=== PATIENT | female | born 1970 | race Caucasian/White ===

== ENCOUNTER 2018-03-08 05:35 | Inpatient (IN) | payer MEDICAID ==
--- NOTE | 2018-03-08 06:28 | ED PDOC ---
Arrival/HPI - General Chief Complaint: Palpitations Time Seen by Provider: 03/08/18 05:46 Historian: Patient - History of Present Illness Narrative History of Present Illness (Text): 03/08/18 06:21 Dalia Mouar is a 47 year old female, whose past medical history includes thyroidectomy, who presents to the Emergency department complaining of recurrent episodes of palpitations for the past 2 days. Patient states she has experienced 4 episodes of racing heart rate over the past 2 days with associated chest discomfort and shortness of breath. Patient states she regularly takes Synthroid. Patient denies any fever, chills, nausea, vomiting, diarrhea, urinary symptoms, back pain, neck pain, headache, dizziness, or any other complaints. Symptom Onset: Gradual Symptom Course: Unchanged Activities at Onset: Light Context: Home Past Medical History - Provider Review Nursing Documentation Reviewed: Yes - Infectious Disease Hx of Infectious Diseases: None - Cardiac Hx Cardiac Disorders: No - Endocrine/Metabolic Other/Comment: thyroidectomy - Psychiatric Hx Substance Use: No Family/Social History - Physician Review Nursing Documentation Reviewed: Yes Family/Social History: Unknown Family HX Smoking Status: Never Smoked Hx Alcohol Use: No Hx Substance Use: No Allergies/Home Meds Allergies/Adverse Reactions: Allergies No Known Allergies Allergy (Unverified 03/08/18 06:34) Home Medications: Home Meds Medication Instructions Recorded Confirmed Calcitriol [Calcitriol] 0.25 mcg PO DAILY 03/08/18 03/08/18 Calcium Carbonate/Vitamin D3 500 mg PO TID 03/08/18 03/08/18 [Calcium 500 mg Chewable Tablet] Levothyroxine [Synthroid] 125 mcg PO DAILY 03/08/18 03/08/18 Review of Systems - Physician Review All systems were reviewed & negative as marked: Yes - Review of Systems Constitutional: Normal. absent: Fevers Eyes: Normal ENT: Normal Respiratory: Normal. absent: SOB, Cough Cardiovascular: Chest Pain, Palpitations Gastrointestinal: Normal. absent: Abdominal Pain, Diarrhea, Nausea, Vomiting Genitourinary Female: Normal. absent: Dysuria, Frequency, Hematuria, Urine Output Changes Musculoskeletal: Normal. absent: Back Pain, Neck Pain Skin: Normal. absent: Rash Neurological: Normal. absent: Headache, Dizziness Endocrine: Normal Hemo/Lymphatic: Normal Psychiatric: Normal Physical Exam Vital Signs Reviewed: Yes Vital Signs Temp Pulse Resp BP Pulse Ox 03/08/18 05:53 98.2 F 97 H 17 133/91 H 100 Temperature: Afebrile Blood Pressure: Normal Pulse: Regular Respiratory Rate: Normal Appearance: Positive for: Well-Appearing, Non-Toxic, Comfortable Pain Distress: None Mental Status: Positive for: Alert and Oriented X 3 - Systems Exam Head: Present: Atraumatic, Normocephalic Pupils: Present: PERRL Extroacular Muscles: Present: EOMI Conjunctiva: Present: Normal Mouth: Present: Moist Mucous Membranes Neck: Present: Normal Range of Motion Respiratory/Chest: Present: Clear to Auscultation, Good Air Exchange. No: Respiratory Distress, Accessory Muscle Use Cardiovascular: Present: Regular Rate and Rhythm, Normal S1, S2. No: Murmurs Abdomen: No: Tenderness, Distention, Peritoneal Signs Back: Present: Normal Inspection Upper Extremity: Present: Normal Inspection. No: Cyanosis, Edema Lower Extremity: Present: Normal Inspection. No: Edema Neurological: Present: GCS=15, CN II-XII Intact, Speech Normal Skin: Present: Warm, Dry, Normal Color. No: Rashes Psychiatric: Present: Alert, Oriented x 3, Normal Insight, Normal Concentration Medical Decision Making ED Course and Treatment: 03/08/18 06:21 Impression: 47 year old female complaining of palpitations, chest discomfort, and shortness of breath x2 days. Plan: -- EKG -- Chest X-ray -- Labs, cardiac enzymes, D-dimer, thyroid profile -- Reassess and disposition Progress Notes: Reviewed EKG, NSR at [address]pm[address] Non-specific ST/T wave changes. Prolonged QT. 03/08/18 07:00 Case endorsed to /pending labs/Chest X-Ray/Reassess/final disposition - RAD Interpretation Radiology Orders: 03/08/18 06:35 CHEST PORTABLE [RAD] Stat - EKG Interpretation Interpreted by ED Physician: Yes Type: 12 lead EKG - Scribe Statement The provider has reviewed the documentation as recorded by the Sixto Hernandes Provider Scribe Attestation: All medical record entries made by the Scribe were at my direction and personally dictated by me. I have reviewed the chart and agree that the record accurately reflects my personal performance of the history, physical exam, medical decision making, and the department course for this patient. I have also personally directed, reviewed, and agree with the discharge instructions and disposition. Disposition/Present on Arrival - Present on Arrival Any Indicators Present on Arrival: No History of DVT/PE: No History of Uncontrolled Diabetes: No Urinary Catheter: No History of Decub. Ulcer: No History Surgical Site Infection Following: None - Disposition Have Diagnosis and Disposition been Completed?: No Diagnosis: Palpitations, Dyspnea Disposition Time: 07:00 Condition: STABLE Forms: [employer] (Kyrgyz)
[2018-03-08 07:04] LABS: HEMOGLOBIN 7.6 g/dL (12.0-16.0); MEAN CELL VOLUME 65.5 fl (80.0-105.0); MEAN CORPUSCULAR HEMOGLOBIN 18.4 pg (25.0-35.0); MEAN PLATELET VOLUME 8.8 fl (7.0-11.0); RBC 4.14 10^6/uL (3.5-6.1); RED CELL DISTRIBUTION WIDTH 23.3 % (11.5-14.5); WHITE BLOOD COUNT 7.5 10^3/ul (4.5-11.0)
[2018-03-08 07:08] LABS: INR 1.14 (0.93-1.08); PARTIAL THROMBOPLASTIN TIME 24.4 Seconds (25.1-36.5); PROTHROMBIN TIME 13.2 SECONDS (9.4-12.5)
[2018-03-08 07:14] LABS: TROPONIN I < 0.01 ng/mL
[2018-03-08 07:20] LABS: ALB/GLOB RATIO 1.3 (1.1-1.8); ALBUMIN 4.1 g/dL (3.0-4.8); ALT/SGPT 26 U/L (7-56); AST/SGOT 27 U/L (14-36); BLOOD UREA NITROGEN 17 mg/dL (7-21); CALCIUM 8.5 mg/dL (8.4-10.5); FREE T4 2.04 ng/dL (0.78-2.19); GFR AFRICAN-AMERICAN 54; GFR NON-AFRICAN AMERICAN 44
[2018-03-08] MEDS ORDERED: Potassium Chloride 20 mEq ER Tab PO STA (07:20)
--- NOTE | 2018-03-08 08:36 | RAD ---
Date of service: 03/08/2018 HISTORY: palpitations COMPARISON: No prior. FINDINGS: LUNGS: No active pulmonary disease. PLEURA: No significant pleural effusion identified, no pneumothorax apparent. CARDIOVASCULAR: Normal. OSSEOUS STRUCTURES: No significant abnormalities. VISUALIZED UPPER ABDOMEN: Normal. OTHER FINDINGS: None. IMPRESSION: No active disease.
--- NOTE | 2018-03-08 09:56 | ED PDOC ---
Physical Exam Vital Signs Reviewed: Yes Vital Signs Temp Pulse Resp BP Pulse Ox 03/08/18 09:30 84 16 126/59 L 99 03/08/18 07:26 98 H 18 129/88 99 03/08/18 05:53 98.2 F 97 H 17 133/91 H 100 Temperature: Afebrile Blood Pressure: Normal Pulse: Regular Respiratory Rate: Normal Appearance: Positive for: Well-Appearing, Non-Toxic, Comfortable Pain Distress: None Mental Status: Positive for: Alert and Oriented X 3 - Systems Exam Head: Present: Atraumatic, Normocephalic Pupils: Present: PERRL Extroacular Muscles: Present: EOMI Conjunctiva: Present: Normal Mouth: Present: Moist Mucous Membranes Neck: Present: Normal Range of Motion Respiratory/Chest: Present: Clear to Auscultation, Good Air Exchange. No: Respiratory Distress, Accessory Muscle Use Cardiovascular: Present: Regular Rate and Rhythm, Normal S1, S2. No: Murmurs Abdomen: No: Tenderness, Distention, Peritoneal Signs Back: Present: Normal Inspection Upper Extremity: Present: Normal Inspection. No: Cyanosis, Edema Lower Extremity: Present: Normal Inspection. No: Edema Neurological: Present: GCS=15, CN II-XII Intact, Speech Normal Skin: Present: Warm, Dry, Normal Color. No: Rashes Psychiatric: Present: Alert, Oriented x 3, Normal Insight, Normal Concentration Medical Decision Making ED Course and Treatment: Impression: 47 year old female complaining of palpitations, chest discomfort, and shortness of breath x2 days. Plan: -- EKG -- Chest X-ray -- Labs, cardiac enzymes, D-dimer, thyroid profile -- Reassess and disposition Progress Notes: Reviewed EKG, NSR at [address]pm[address] Non-specific ST/T wave changes. Prolonged QT. 03/08/18 07:00 Case endorsed to me for pending labs/Chest X-Ray/Reassess/final disposition Chest X-Ray reviewed by radiologist, shows: Report Date : 03/08/2018 08:35:06 Creator : Bud Bower MD Dictator : Bud Bower MD Clip Baker : Bud Bower MD FINDINGS: LUNGS: No active pulmonary disease. PLEURA: No significant pleural effusion identified, no pneumothorax apparent. CARDIOVASCULAR: Normal. OSSEOUS STRUCTURES: No significant abnormalities. VISUALIZED UPPER ABDOMEN: Normal. OTHER FINDINGS: None. IMPRESSION: No active disease. 03/08/18 10:[address] Rocha (hospitalist), who is aware and agrees with plan. Accepts patient into hospital service for observation. - Lab Interpretations Lab Results: 03/08/18 06:30 03/08/18 06:30 Lab Results 03/08/18 08:20: Blood Type Confirm A POSITIVE 03/08/18 07:40: Blood Type A POSITIVE, Antibody Screen Negative, BBK History Checked No verified bt 03/08/18 06:30: D-Dimer, Quantitative 337 H 03/08/18 06:30: WBC 7.5, RBC 4.14, Hgb 7.6 L, Hct 27.1 L, MCV 65.5 L, MCH 18.4 L , MCHC 28.0 L, RDW 23.3 H, Plt Count 336, MPV 8.8 03/08/18 06:30: Free T4 2.04, TSH 3rd Generation 0.42 L 03/08/18 06:30: Sodium 140, Potassium 2.8 L*, Chloride 104, Carbon Dioxide 25, Anion Gap 14, BUN 17, Creatinine 1.3 H, Est GFR ( Amer) 54, Est GFR (Non- Af Amer) 44, Random Glucose 127 H, Calcium 8.5, Total Bilirubin 0.6, AST 27, ALT 26, Alkaline Phosphatase 41, Lactate Dehydrogenase 538, Total Creatine Kinase 69, Troponin I < 0.01, Total Protein 7.3, Albumin 4.1, Globulin 3.2, Albumin/Globulin Ratio 1.3 03/08/18 06:30: PT 13.2 H, INR 1.14 H, APTT 24.4 L - RAD Interpretation Radiology Orders: 03/08/18 06:35 CHEST PORTABLE [RAD] Stat Director Service: Radiologist - EKG Interpretation Interpreted by ED Physician: Yes Type: 12 lead EKG - Medication Orders Current Medication Orders: Discontinued Medications Potassium Chloride (K-Dur 20 Meq Er Tab) 40 meq PO STAT STA Stop: 03/08/18 07:21 Last Admin: 03/08/18 07:28 Dose: 40 meq - Scribe Statement The provider has reviewed the documentation as recorded by the Bjiblashell Elise All medical record entries made by the Scriblashell were at my direction and personally dictated by me. I have reviewed the chart and agree that the record accurately reflects my personal performance of the history, physical exam, medical decision making, and the department course for this patient. I have also personally directed, reviewed, and agree with the discharge instructions and disposition. Disposition/Present on Arrival - Present on Arrival Any Indicators Present on Arrival: No History of DVT/PE: No History of Uncontrolled Diabetes: No Urinary Catheter: No History of Decub. Ulcer: No History Surgical Site Infection Following: None - Disposition Have Diagnosis and Disposition been Completed?: Yes Diagnosis: Palpitations, Dyspnea, Profound anemia Disposition: HOSPITALIZED Disposition Time: 11:33 Patient Plan: Admission, Telemetry Patient Problems: Current Active Problems Problem Status Onset Palpitations Acute Dyspnea Acute Condition: FAIR
--- NOTE | 2018-03-08 11:11 | CARD ---
APPROVED REPORT Date of service: 03/08/2018 EKG Measurement Heart [id number] ID [id number] <Conclusion> Normal sinus rhythm Nonspecific ST and T wave abnormality Prolonged QT Abnormal ECG
[2018-03-08 12:53] VITALS: BMI 25.8
[2018-03-08] MEDS ORDERED: Pneumococcal 23-Valent Vaccine IM ONE (12:53)
[2018-03-08] MEDS ORDERED: VITAMIN D3 PO SCH (14:00)
[2018-03-08] MEDS ORDERED: CALCIUM CARBONATE PO SCH (14:00)
[2018-03-08] MEDS ORDERED: [UNRECOGNIZED DRUG - OTHER] PO SCH (14:00)
[2018-03-08 15:53] LABS: CALCIUM 8.7 mg/dL (8.4-10.5)
[2018-03-08 15:57] LABS: IRON 19 ug/dL (45-180)
[2018-03-08 15:58] LABS: HEMOGLOBIN 7.9 g/dL (12.0-16.0)
[2018-03-08 16:06] LABS: % IRON SATURATION 5 % (20-55); TOTAL IRON BINDING CAPACITY 387 ug/dL (265-497)
--- NOTE | 2018-03-08 16:58 | CP.PCM.HP ---
<Marissa Tiwari - Last Filed: 03/08/18 16:55> History of Present Illness - History of Present Illness History of Present Illness: Marissa Tiwari, PGY1 H&P for Hospitalist Dr. Rocha Ms. Moura is a 47yo F with a PMH of hypothyroidism and iron-deficiency anemia presented to the ED today with palpitations for 2 days. She reports sitting at home on 03/06 and feeling palpitations, unprovoked by any activity or incident. She reported associated sweating, chills, and shortness of breath. She denied any chest pain, dizziness or loss of consciousness. At this time, she reports taking 20mg of inderal, and the palpitations subsided after 3 hours. She reports a previous history of this episode in 01/2018 in [facility], where she visited a hospital there and received the inderal. The patient reports the palpitations recurring yesterday 03/07. She also reports a soft bowel stool yesterday after eating spicy food, but denies any abdominal pain or cramping. Pt reports a headache today. Allergies: NKDA Meds: Synthroid, caltrate, calcium PMH: hypothyroidism and iron deficiency anemia PSxH: thyroidectomy (2011). Tubular Ligation FHx: Father - DM2, Mother- denies SocHx: Pt is a home health aid. Lives at home with and children. Denies past or present tobacco use or recreational drug use. Reports occasional alcohol use. Drinks 2 cups of tea/day [employer]ERK SUPERVISOR: reports regular menses, uses 5 pads for the first 2 days of menses. LMP: PMD: Dr. Delcid ED: EKG: NSR @ 95 CXR: unremarkable Troponin: neg x2 Labs: Hb 7.6, K+ 2.1 D-dimer: 337 Present on Admission - Present on Admission Any Indicators Present on Admission: No History of DVT/PE: No History of Uncontrolled Diabetes: No Review of Systems - Constitutional Constitutional: As Per HPI, Chills, Excessive Sweating - Cardiovascular Cardiovascular: Diaphoresis, Palpitations - Respiratory Respiratory: Dyspnea - Gastrointestinal Gastrointestinal: Loose Stools - Menstruation Menstruation: As Per HPI - Neurological Neurological: As Per HPI Past Patient History - Infectious Disease Hx of Infectious Diseases: None - Past Medical History & Family History Past Medical History?: Yes Past Family History: Reviewed and not pertinent - Past Social History Smoking Status: Never Smoked Alcohol: Occasional Drugs: Denies - CARDIAC Hx Cardiac Disorders: Yes (palpitations) - PULMONARY Hx Respiratory Disorders: No - NEUROLOGICAL Hx Neurological Disorder: No - HEENT Hx HEENT Problems: No - RENAL Hx Chronic Kidney Disease: No - ENDOCRINE/METABOLIC Hx Endocrine Disorders: Yes Hx Hypothyroidism: Yes Other/Comment: thyroidectomy - HEMATOLOGICAL/ONCOLOGICAL Hx Blood Disorders: Yes Hx Anemia: Yes - INTEGUMENTARY Hx Dermatological Problems: No - MUSCULOSKELETAL/RHEUMATOLOGICAL Hx Falls: No - GASTROINTESTINAL Hx Gastrointestinal Disorders: No - GENITOURINARY/GYNECOLOGICAL Hx Genitourinary Disorders: No - PSYCHIATRIC Hx Substance Use: No - SURGICAL HISTORY Hx Surgeries: Yes (tubal ligation) Meds Allergies/Adverse Reactions: Allergies Allergy/AdvReac Type Severity Reaction Status Date / Time No Known Allergies Allergy Unverified 03/08/18 06:34 Physical Exam - Constitutional Appears: No Acute Distress - Head Exam Head Exam: ATRAUMATIC, NORMOCEPHALIC - Eye Exam Eye Exam: EOMI, Normal appearance, PERRL Pupil Exam: NORMAL ACCOMODATION - ENT Exam ENT Exam: Mucous Membranes Moist - Neck Exam Neck exam: Positive for: Normal Inspection - Respiratory Exam Respiratory Exam: Clear to Auscultation Bilateral, NORMAL BREATHING PATTERN - Cardiovascular Exam Cardiovascular Exam: REGULAR RHYTHM, +S1, +S2 - GI/Abdominal Exam GI & Abdominal Exam: Normal Bowel Sounds, Soft - Extremities Exam Extremities exam: Positive for: normal inspection, pedal pulses present - Back Exam Back exam: NORMAL INSPECTION - Neurological Exam Neurological exam: Alert, Oriented x3 - Skin Skin Exam: Intact, Normal Color Results - Vital Signs Recent Vital Signs: Last Vital Signs Temp 99.7 F H 03/08/18 12:40 Pulse 96 H 03/08/18 12:40 Resp 17 03/08/18 12:40 BP 147/96 H 03/08/18 12:40 Pulse Ox 98 03/08/18 12:36 - Labs Result Diagrams: 03/08/18 15:39 03/08/18 15:39 Labs: Laboratory Results - last 24 hr 03/08/18 03/08/18 03/08/18 13:09 15:39 15:39 Hgb 7.9 L Hct 27.9 L Sodium 143 Potassium 3.2 L Chloride 102 Carbon Dioxide 28 Anion Gap 16 BUN 15 Creatinine 1.3 H Est GFR ( Amer) 54 Est GFR (Non-Af Amer) 44 Random Glucose 104 Calcium 8.7 Iron TIBC % Saturation Troponin I < 0.01 03/08/18 15:39 Hgb Hct Sodium Potassium Chloride Carbon Dioxide Anion Gap BUN Creatinine Est GFR ( Amer) Est GFR (Non-Af Amer) Random Glucose Calcium Iron 19 L TIBC 387 % Saturation 5 L Troponin I - EKG Data EKG shows normal: Sinus rhythm Assessment & Plan - Assessment and Plan (Free Text) Assessment: Assessment: 47 year old female with past medical history of hypothyroidism, thyroid mass s/ p thymectomy who presents to [facility] ED complaining of few day history of palpitations. Patient evaluated in ED and admitted for palpitations, anemia, and hypokalemia. Patient admitted to observation. Plan: Plan: Palpitations - Etiology: electrolyte abnormality vs. anemia vs. thyrotoxicosis vs. arrhythmia - Hypokalemia of 2.8 on admission, H/H of 7.6/27.1 - TSH 0.42, Free T4 2.04 wnl, EKG showing sinus tachycardia - Troponin negative x 2 - Continue propranolol 40mg Daily Anemia - Hemoglobin 7.6/27.1 on admission - Etiology: Menstrual bleeding vs. GI bleed - Repeat H/H showing 7.9/27.9, stable - Patient with tachycardia, no shob - Iron panel - Repeat CBC - FOBT Hypokalemia (2.8 on admission) - Etiology likely GI loss - Replete K+, recheck shows 3.2 - Replete potassium as necessary Elevated D-Dimer - Etiology: Infectious vs. Anemia vs. PE/DVT - No leukocytosis, anemia on admission - O2 Saturation >92%, no shob - CTA chest for eval of PE, f/u results Hx of Hypothyroid - TSH 0.42, Free T4 2.04 - Continue home synthroid - Continue propranolol from home GI/DVT ppx - Pepcid - SCD Case and plan discussed with attending Dr. Rocha <Debbie Rocha R - Last Filed: 03/09/18 20:16> Results - Vital Signs Recent Vital Signs: Last Vital Signs Temp 99.7 F H 03/09/18 19:00 Pulse 92 H 03/09/18 19:00 Resp 18 07/31/18 18:00 BP 129/82 03/09/18 18:00 Pulse Ox 98 03/09/18 16:59 - Labs Result Diagrams: 03/09/18 16:00 03/09/18 06:00 Attending/Attestation - Attestation I have personally seen and examined this patient.: Yes I have fully participated in the care of the patient.: Yes I have reviewed all pertinent clinical information: Yes Notes (Text): Patient seen and examined by me at 13:30 with resident 03/08/18. Case including HPI, physical exam, and assessment and plan discussed with resident. Agree with above with following additions/corrections. Patient is a 47-year-old female past medical history significant for hypothyroidism status post thyroidectomy that presented to the emergency room with palpitations. Patient states that the palpitations started on Thursday, . She states that the palpitations have been persistent since then which brought her into the emergency room this morning. She states that the same thing happened in January 2018 when patient was in [facility] and she was started on propanolol at that time. Patient states that her doctor stated that she needed to stay on the propanolol however patient only takes it as needed. Patient does drink 2 cups of tea a day. Patient states that yesterday she had episodes of "feeling hot and cold." She states that she may have had a fever last night however she did not take her temperature. She states that she also had an episode of diarrhea on 03/06/2018 which has since resolved. Patient denies any associated chest pain. Patient did travel recently from [facility]. She denies any shortness of breath or cough. No nausea, vomiting, or abdominal pain. No headaches or dizziness. No dysuria. No neck pain or back pain. No calf pain. Patient states that she does have a history of iron deficiency anemia however she has not followed with the primary care doctor to have a blood work monitored. She states that her last menstrual period was last week. No lightheadedness. No hematochezia. 12 point review systems reviewed by me. Please see HPI. All other systems are negative. Past surgical history: Tubal ligation Family history: Mom is alive and has borderline diabetes. Father and had diabetes Physical exam: Gen: Awake and alert sitting up in bed in no acute distress HEENT: Normocephalic atraumatic. Extraocular muscles intact, pupils equal reactive. Oropharynx is pink and moist, no pharyngeal erythema or exudate appreciated. Neck is supple. Hearing grossly intact. Ears and nose externally unremarkable Cardiovascular: Normal rhythm. Normal S1, S2. No murmurs, rubs, or gallops appreciated Pulmonary: Normal respiratory effort. No rhonchi, rales or wheezing appreciated. Gastrointestinal: Soft, nontender, nondistended, positive bowel sounds all 4 quadrants, no guarding. Musculoskeletal: Normal range of motion all extremities, no calf tenderness, no edema appreciated Central nervous system: AAO x 3. 5/5 muscle strength all extremities. CN 2-12 grossly intact Dermatologic: Skin warm and dry Assessment and plan: Patient is a 47-year-old female with past medical significant for hypothyroidism status post thyroidectomy that presented to the emergency room with palpitations. 1. Palpitations. Resolved. We'll restart patient on home propanolol. Will check 2-D echo. No current signs of infection. Urinalysis pending. We'll monitor on telemetry. 2. Elevated d-dimer. Patient with recent travel. We'll check CTA chest and lower extremity Dopplers to rule out PE and DVT 3. Hypokalemia. Likely secondary to diarrhea. We will replace with by mouth potassium. Follow up repeat labs. 4. Elevated creatinine. Likely secondary to mild dehydration. We'll place on IV fluids. Follow up repeat labs in a.m. 5. History of iron deficiency anemia. Unsure of what baseline H&H is. We'll check iron studies. Check stool for occult blood. Patient did recently have her menstrual period. We'll monitor CBC. Transfuse if hemoglobin less than 7 6. Hypothyroidism. Continue home levothyroxine Case was discussed in detail with the patient and auditor medical claims regarding current diagnosis and treatment plan.
[2018-03-08 17:07] LABS: URINE BILIRUBIN NEGATIVE (NEGATIVE); URINE BLOOD LARGE (NEGATIVE); URINE GLUCOSE (UA) NEGATIVE (NEGATIVE); URINE LEUKOCYTE ESTERASE SMALL Leu/uL (NEGATIVE); URINE PROTEIN 100 mg/dL (<30 mg/dL); URINE UROBILINOGEN 0.2 E.U./dL (<1 E.U./dL)
[2018-03-08 17:08] LABS: URINE APPEARANCE SLIGHT-CLOUDY (CLEAR); URINE COLOR YELLOW (YELLOW)
[2018-03-08 17:10] LABS: URINE RBC 25 - 30 /hpf (0-2)
[2018-03-08] MEDS ORDERED: Potassium Chloride 20 mEq ER Tab PO ONE (18:00)
--- NOTE | 2018-03-08 18:19 | US ---
HISTORY: Leg pain and swelling. Evaluate for DVT PHYSICIAN(S): Taran Grijalva MD. TECHNIQUE: Duplex sonography and color-flow Doppler with graded compression were used to evaluate the deep venous systems of both lower extremities. FINDINGS: The visualized deep venous systems of both lower extremities are sonographically normal and compressible. Normal wave forms and augmentation are seen. There is no sonographic evidence for deep venous thrombosis in the visualized segments of both lower extremities. IMPRESSION: No sonographic evidence for deep venous thrombosis in the visualized segments of both lower extremities.
[2018-03-08] MEDS: Sodium Chloride 0.9% 1,000 ML IV SCH (19:13)
[2018-03-08] MEDS ORDERED: Iohexol 350 MG/100 ML VIAL ONE (20:19)
[2018-03-09 06:46] LABS: BASO # 0.01 K/mm3 (0.0-2.0); BASO % 0.1 % (0.0-3.0); EOS % 0.1 % (1.5-5.0); GRAN # 7.64 (1.4-6.5); GRAN % 85.2 % (50.0-68.0); HEMOGLOBIN 7.2 g/dL (12.0-16.0); LYMPH # 0.8 (1.2-3.4); LYMPH % 8.6 % (22.0-35.0); MEAN CELL VOLUME 65.5 fl (80.0-105.0); MEAN CORPUSCULAR HEMOGLOBIN 18.7 pg (25.0-35.0); MEAN CORPUSCULAR HGB CONC 28.5 g/dl (31.0-37.0); MONO # 0.5 (0.1-0.6); RBC 3.86 10^6/uL (3.5-6.1); RED CELL DISTRIBUTION WIDTH 23.5 % (11.5-14.5)
[2018-03-09 06:50] LABS: INR 1.18
[2018-03-09 06:57] LABS: ALB/GLOB RATIO 1.1 (1.1-1.8); ALBUMIN 3.3 g/dL (3.0-4.8); CALCIUM 7.9 mg/dL (8.4-10.5)
[2018-03-09] MEDS ORDERED: Potassium Chloride 20 mEq ER Tab PO ONE (08:06)
[2018-03-09] MEDS: Sodium Chloride 0.9% 1,000 ML IV SCH ×3 (08:12→21:39)
--- NOTE | 2018-03-09 08:43 | CP.PCM.PN ---
<Marissa Tiwari - Last Filed: 03/09/18 20:32> Subjective - Date & Time of Evaluation Date of Evaluation: 03/09/18 Time of Evaluation: 14:36 - Subjective Subjective: Marissa Tiwari, PGY-[address] Debbie Rocha Ms. Edmond was seen today at [facility]. She reports fever, sweating, and chills overnight. She denies any palpitations, chest pain, dizziness, nausea, vomiting , diarrhea, abdominal pain, or dysuria. She reported polyuria which she attributed to increased h2o intake. Objective - Vital Signs/Intake and Output Vital Signs (last 24 hours): Temp Pulse Resp BP Pulse Ox 101.7 F H 107 H 20 140/79 98 03/09/18 03:40 03/09/18 05:53 03/09/18 05:53 03/09/18 05:53 03/09/18 05:53 Intake and Output: 03/09/18 03/09/18 06:59 18:59 Intake Total 807 480 Output Total 800 Balance 807 -320 - Medications Medications: Current Medications Acetaminophen (Tylenol 325mg Tab) 650 mg PO Q6H PRN PRN Reason: Pain, moderate (4-7) Calcitriol (Rocaltrol) 0.25 mcg PO DAILY [facility] Calcium Carbonate (Oscal) 500 mg PO DAILY [facility] Famotidine (Pepcid) 20 mg PO BID [facility] Last Admin: 03/08/18 17:16 Dose: 20 mg Sodium Chloride (Sodium Chloride 0.9%) 1,000 mls @ 100 mls/hr IV .Q10H [facility] Last Admin: 03/09/18 08:12 Dose: 100 mls/hr Levothyroxine Sodium (Synthroid) 125 mcg PO DAILY [facility] Propranolol HCl (Inderal) 20 mg PO DAILY [facility] - Labs Labs: 03/09/18 06:00 03/09/18 06:00 PT 13.6 SECONDS 03/09/18 06:00 INR 1.18 03/09/18 06:00 APTT 24.4 Seconds (25.1-36.5) L 03/08/18 06:30 - Constitutional Appears: Well, No Acute Distress - Head Exam Head Exam: ATRAUMATIC, NORMOCEPHALIC - Eye Exam Eye Exam: EOMI, PERRL - ENT Exam ENT Exam: Mucous Membranes Moist - Neck Exam Neck Exam: Full ROM - Respiratory Exam Respiratory Exam: Clear to Ausculation Bilateral, NORMAL BREATHING PATTERN - Cardiovascular Exam Cardiovascular Exam: RRR, +S1, +S2 - GI/Abdominal Exam GI & Abdominal Exam: Soft, Normal Bowel Sounds. absent: Distended, Tenderness Additional comments: No suprapubic pain. - Neurological Exam Neurological Exam: Alert, Awake, Oriented x3 - Psychiatric Exam Psychiatric exam: Normal Affect, Normal Mood - Skin Skin Exam: Warm Additional comments: moist skin from diaphoresis Assessment and Plan - Assessment and Plan (Free Text) Assessment: 47 year old female with past medical history of hypothyroidism, thyroid mass s/ p thyroidectomy (2011) who presents to [facility] complaining of few day history of palpitations. Patient evaluated in ED and admitted for palpitations, anemia, and hypokalemia. Patient admitted to observation. Plan: Urinary Tract Infection - Tmax 103F and tachycardia > 90bpm - suspected source Urine culture: preliminary Gram neg sanjana, CFU >100,000 - UA: small leukocyte esterase - Blood culture: prelim neg - procal: 0.73 - f/u lactate - Rocephin 1gm qd - Inderal on hold - ID Consulted - f/u reccs Palpitations - resolved since admission - Etiology: stress reaction from infectious process vs. anemia vs. electrolyte abnormality - Hypokalemia of 2.8 on admission, now 3.5. H/H of 7.6/27.1, now 7.4/26.2 - TSH 0.42, Free T4 2.04 wnl, EKG showing sinus tachycardia - Troponin negative x 3 - propranolol on hold Anemia - Repeat H&H now 7.4/26.2 - Fe 19 TIBC 387 - Etiology: Menstrual bleeding vs. GI bleed - f/u FOBT Hypokalemia (2.8 on admission) - Repleted K+, Today 3.5 - Etiology likely GI loss - Replete potassium as necessary Elevated D-Dimer - Etiology: Infectious vs. Anemia - No leukocytosis on admission - CTA chest negative - B/l LE US negative - O2 saturation >92% - Unlikely DVT/PE etiology Hx of Hypothyroid - TSH 0.42, Free T4 2.04 - Continue home synthroid - Propranolol on hold GI/DVT ppx - Pepcid - SCD Case and plan discussed with attending Dr. Rocha <Debbie Rocha R - Last Filed: 03/10/18 07:57> Objective - Vital Signs/Intake and Output Vital Signs (last 24 hours): Temp Pulse Resp BP Pulse Ox 98.2 F 84 20 132/90 99 03/10/18 06:00 03/10/18 06:00 03/10/18 06:00 03/10/18 06:00 03/10/18 06:00 Intake and Output: 03/10/18 03/10/18 06:59 18:59 Intake Total 0 Output Total 0 Balance 0 - Medications Medications: Current Medications Acetaminophen (Tylenol 325mg Tab) 650 mg PO Q6H PRN PRN Reason: Fever >100.4 F Last Admin: 03/10/18 06:57 Dose: 650 mg Calcitriol (Rocaltrol) 0.25 mcg PO DAILY [facility] Last Admin: 03/09/18 10:35 Dose: 0.25 mcg Calcium Carbonate (Oscal) 500 mg PO DAILY [facility] Last Admin: 03/09/18 10:35 Dose: 500 mg Famotidine (Pepcid) 20 mg PO BID [facility] Last Admin: 03/09/18 17:38 Dose: 20 mg Ferrous Gluconate (Fergon) 324 mg PO DAILY [facility] Sodium Chloride (Sodium Chloride 0.9%) 1,000 mls @ 100 mls/hr IV .Q10H [facility] Last Admin: 03/10/18 06:59 Dose: 100 mls/hr Ceftriaxone Sodium (Rocephin 1 Gram Ivpb) 1 gm in 100 mls @ 100 mls/hr IVPB DAILY [facility] PRN Reason: Protocol Last Admin: 03/09/18 17:39 Dose: 100 mls/hr Levothyroxine Sodium (Synthroid) 125 mcg PO DAILY [facility] Last Admin: 03/09/18 10:35 Dose: 125 mcg - Labs Labs: 03/10/18 06:00 PT 13.6 SECONDS 03/09/18 06:00 INR 1.18 03/09/18 06:00 APTT 24.4 Seconds (25.1-36.5) L 03/08/18 06:30 Attending/Attestation - Attestation I have personally seen and examined this patient.: Yes I have fully participated in the care of the patient.: Yes I have reviewed all pertinent clinical information, including history, physical exam and plan: Yes Notes (Text): Patient seen and examined by me at 13:30 with resident 03/08/18. Case including HPI, physical exam, and assessment and plan discussed with resident. Agree with above with following additions/corrections. Patient states she is feeling ok. States she had an episode of feeling hot and sweaty and having chills last night. She states the nurse took her temperature at that time and she was found to have a fever. Patient states she feels much better today. No fevers or chills this morning. Palpitations resolved. She denies any shortness of breath or cough. No nausea, vomiting, or abdominal pain. No headaches or dizziness. No dysuria. However, patient states she does have increased urinary frequency. No neck pain or back pain. Physical exam: Gen: Awake and alert sitting up in bed in no acute distress HEENT: Normocephalic, atraumatic. Extraocular muscles intact, pupils equal reactive. Oropharynx is pink and moist, no pharyngeal erythema or exudate appreciated. Neck is supple. Cardiovascular: Normal rhythm. Normal S1, S2. No murmurs, rubs, or gallops appreciated Pulmonary: Normal respiratory effort. No rhonchi, rales or wheezing appreciated. Gastrointestinal: Soft, nontender, nondistended, positive bowel sounds all 4 quadrants, no guarding. Musculoskeletal: Normal range of motion all extremities, no calf tenderness, no edema appreciated Central nervous system: AAO x 3. 5/5 muscle strength all extremities. CN 2-12 grossly intact Dermatologic: Skin warm and dry Assessment and plan: Patient is a 47-year-old female with past medical significant for hypothyroidism status post thyroidectomy that presented to the emergency room with palpitations. 1. Sepsis secondary to UTI. Fevera and tachycardia. Follow up procalcitonin and lactic acid. Started on Rocephin. Continue with IV fluids. ID consulted, follow up recommendations. Blood cultures pending. Tylenol prn fever. 2. Palpitations. Resolved. Likely secondary to fevers. Hold propanolol for now secondary to sepsis. 2D echo per inking machine tender showed a normal study. 3. Elevated d-dimer. Patient with recent travel. CTA chest negative for PE. Lower extremity Dopplers negative for DVT 4. Hypokalemia. Improved. Will give PO replacement. Follow up repeat labs in AM. 5. Elevated creatinine. Likely secondary to mild dehydration. Resolved. Continue to monitor. 6. Iron deficiency anemia. Iron levels low. Will start on ferrous gluconate. Continue to monitor CBC. Transfuse if Hgb < 7. 7. Hypothyroidism. Continue home levothyroxine Case was discussed in detail with the patient regarding current diagnosis and treatment plan.
--- NOTE | 2018-03-09 08:49 | CT ---
Date of service: 03/08/2018 PROCEDURE: CT Chest with contrast (Pulmonary Angiogram) HISTORY: palpitations,dyspnea COMPARISON: None available. TECHNIQUE: Axial computed tomography images were obtained of the chest in the pulmonary arterial phase of enhancement. Coronal and sagittal reformatted images were created and reviewed. Intravenous contrast dose: 100 cc of Omni 350 Radiation dose: Total exam DLP = 327 mGy-cm. This CT exam was performed using one or more of the following dose reduction techniques: Automated exposure control, adjustment of the mA and/or kV according to patient size, and/or use of iterative reconstruction technique. FINDINGS: PULMONARY ARTERIES: Unremarkable. No pulmonary embolism. AORTA: No acute findings. No thoracic aortic aneurysm. LUNGS: Unremarkable. No nodule, mass or pulmonary consolidation. PLEURAL SPACES: Unremarkable. No effusion or pneumothorax. HEART: Unremarkable. No cardiomegaly. No significant pericardial effusion. LYMPH NODES: No lymphadenopathy. BONES, CHEST WALL: Unremarkable. No fracture or destructive lesion OTHER FINDINGS: The report concurs with the preliminary [facility] report IMPRESSION: Unremarkable CT pulmonary angiogram. No pulmonary embolus.
[2018-03-09] MEDS: Levothyroxine 125 MCG TAB PO SCH (10:35)
[2018-03-09] MEDS ORDERED: Magnesium 2 gm/50 ml NS 2 GM/50 ML BAG IVPB ONE (11:38)
[2018-03-09] MEDS ORDERED: cefTRIAXone 2 GM IN NS 2 GM/100 ML BAG IVPB SCH (11:45)
--- NOTE | 2018-03-09 13:09 | CARD ---
APPROVED REPORT Date of service: 03/09/2018 EXAM: Two-dimensional and M-mode echocardiogram with Doppler and color Doppler. INDICATION Dyspnea Palpitations 2D DIMENSIONS Left Atrium (2D)2.7 (1.6-4.0cm)IVSd1.0 (0.7-1.1cm) LVDd4.2 (3.9-5.9cm)PWd1.0 (0.7-1.1cm) LVDs2.8 (2.5-4.0cm)FS (%) 35.1 % LVEF (%)64.8 (>50%) M-Mode DIMENSIONS Aortic Root2.80 (2.2-3.7cm)Aortic Cusp Exc.1.80 (1.5-2.0cm) Aortic Valve AoV Peak Qxudeorp394.0cm/Inez Peak GR.6mmHg Mitral Valve MV E Ughakfwm41.0cm/sMV A Eggztglc80.4cm/sE/A ratio1.2 TDI E/Lateral E'0.0E/Medial E'0.0 Tricuspid Valve TR Peak [id number]/sRAP [id number] Peak Gr.12mmHg [id number] LEFT VENTRICLE The left ventricle is normal size. There is normal left ventricular wall thickness. The left ventricular function is normal. The left ventricular ejection fraction is within the normal range. There is normal LV segmental wall motion. RIGHT VENTRICLE The right ventricle is normal size. The right ventricular systolic function is normal. ATRIA The left atrium size is normal. The right atrium size is normal. The interatrial septum is intact with no evidence for an atrial septal defect. AORTIC VALVE The aortic valve is normal in structure. No aortic regurgitation is present. There is no aortic valvular stenosis. MITRAL VALVE The mitral valve is normal in structure. Mitral regurgitation is trace. TRICUSPID VALVE The tricuspid valve is normal in structure. There is mild tricuspid regurgitation. PULMONIC VALVE The pulmonary valve is normal in structure. GREAT VESSELS The aortic root is normal in size. The IVC is normal in size and collapses >50% with inspiration. PERICARDIAL EFFUSION There is no pleural effusion. There is no pericardial effusion. <Conclusion> Normal study.
[2018-03-09] MEDS ORDERED: cefTRIAXone 1 gm 1 GM/100 ML BAG IVPB SCH (14:35)
[2018-03-09 16:12] LABS: HEMOGLOBIN 7.4 g/dL (12.0-16.0)
[2018-03-09] MEDS: cefTRIAXone 1 gm 1 GM/100 ML BAG IVPB SCH (17:39)
[2018-03-10] MEDS: Sodium Chloride 0.9% 1,000 ML IV SCH ×3 (01:36→22:00)
[2018-03-10 06:36] LABS: BASO # 0.01 K/mm3 (0.0-2.0); BASO % 0.1 % (0.0-3.0); EOS % 0.2 % (1.5-5.0); GRAN # 4.99 (1.4-6.5); GRAN % 61.9 % (50.0-68.0); LYMPH # 2.2 (1.2-3.4); LYMPH % 26.7 % (22.0-35.0); MEAN CELL VOLUME 65.4 fl (80.0-105.0); MEAN CORPUSCULAR HEMOGLOBIN 18.4 pg (25.0-35.0); MEAN CORPUSCULAR HGB CONC 28.1 g/dl (31.0-37.0); MEAN PLATELET VOLUME 8.9 fl (7.0-11.0); MONO # 0.9 (0.1-0.6); MONO % 11.1 % (1.0-6.0); PLATELET COUNT 294 10^3/uL (120.0-450.0); RED CELL DISTRIBUTION WIDTH 23.6 % (11.5-14.5); WHITE BLOOD COUNT 8.1 10^3/ul (4.5-11.0)
--- NOTE | 2018-03-10 06:57 | CP.PCM.PN ---
<Marissa Tiwari - Last Filed: 03/10/18 19:01> Subjective - Date & Time of Evaluation Date of Evaluation: 03/10/18 Time of Evaluation: 17:22 - Subjective Subjective: Marissa Tiwari PGY [address] Debbie Rocha Ms. Moura was seen today at bedside. She reported feeling warm the night before, but currently feels comfortable. She denies any headache, dizziness, chills, chest pain, palpitations, abdominal pain, nausea, vomiting, diarrhea, or dysuria. Objective - Vital Signs/Intake and Output Vital Signs (last 24 hours): Temp Pulse Resp BP Pulse Ox 98.2 F 84 20 132/90 99 03/10/18 06:00 03/10/18 06:00 03/10/18 06:00 03/10/18 06:00 03/10/18 06:00 Intake and Output: 03/09/18 03/10/18 18:59 06:59 Intake Total 0 Output Total 0 Balance 0 - Medications Medications: Current Medications Acetaminophen (Tylenol 325mg Tab) 650 mg PO Q6H PRN PRN Reason: Fever >100.4 F Last Admin: 03/09/18 14:50 Dose: 650 mg Calcitriol (Rocaltrol) 0.25 mcg PO DAILY [facility] Last Admin: 03/09/18 10:35 Dose: 0.25 mcg Calcium Carbonate (Oscal) 500 mg PO DAILY [facility] Last Admin: 03/09/18 10:35 Dose: 500 mg Famotidine (Pepcid) 20 mg PO BID [facility] Last Admin: 03/09/18 17:38 Dose: 20 mg Ferrous Gluconate (Fergon) 324 mg PO DAILY [facility] Sodium Chloride (Sodium Chloride 0.9%) 1,000 mls @ 100 mls/hr IV .Q10H [facility] Last Admin: 03/10/18 01:36 Dose: Not Given Ceftriaxone Sodium (Rocephin 1 Gram Ivpb) 1 gm in 100 mls @ 100 mls/hr IVPB DAILY [facility] PRN Reason: Protocol Last Admin: 03/09/18 17:39 Dose: 100 mls/hr Levothyroxine Sodium (Synthroid) 125 mcg PO DAILY [facility] Last Admin: 03/09/18 10:35 Dose: 125 mcg - Labs Labs: PT 13.6 SECONDS 03/09/18 06:00 INR 1.18 03/09/18 06:00 APTT 24.4 Seconds (25.1-36.5) L 03/08/18 06:30 - Constitutional Appears: Well, No Acute Distress - Head Exam Head Exam: ATRAUMATIC, NORMOCEPHALIC - Eye Exam Eye Exam: EOMI, PERRL Pupil Exam: NORMAL ACCOMODATION - ENT Exam ENT Exam: Mucous Membranes Moist - Neck Exam Neck Exam: Full ROM - Respiratory Exam Respiratory Exam: Clear to Ausculation Bilateral, NORMAL BREATHING PATTERN - Cardiovascular Exam Cardiovascular Exam: REGULAR RHYTHM, +S1, +S2 - GI/Abdominal Exam GI & Abdominal Exam: Soft, Normal Bowel Sounds. absent: Distended, Firm, Tenderness Additional comments: no suprapubic tenderness - Extremities Exam Extremities Exam: Normal Inspection. absent: Pedal Edema - Neurological Exam Neurological Exam: Alert, Awake, Oriented x3 - Psychiatric Exam Psychiatric exam: Normal Affect, Normal Mood - Skin Skin Exam: Normal Color Assessment and Plan - Assessment and Plan (Free Text) Assessment: 47 year old female with past medical history of hypothyroidism, thyroid mass s/ p thyroidectomy (2011) who presents to [facility] complaining of few day history of palpitations. Patient evaluated in ED and admitted for palpitations, anemia, and hypokalemia. Patient admitted to observation. Plan: Sepsis - Tmax 103F on 03/09 and tachycardia > 90bpm - T 99.2 today, HR 84 - suspected source Urine culture: confirmed E.coli, CFU >100,000 - UA: small leukocyte esterase - Blood culture: prelim neg - procal: 0.73 - lactate: 0.6 - Rocephin 1gm qd - Inderal on hold - ID Consulted - recommended workup of babesiosis and malaria due to recent travel to [facility]. - will follow ID lab work up closely Anemia - Repeat H&H 6.8 / 24.2 today - Fe 19 TIBC 387 - 1 unit PRBC given - Consent for transfusion obtained - Etiology: Menstrual bleeding vs. GI bleed - f/u FOBT Palpitations - resolved since admission - Etiology: stress reaction from infectious process vs. anemia vs. electrolyte abnormality - Hypokalemia of 2.8 on admission, now 3.1. H/H of 7.6/27.1, now 6.8/24.2 - TSH 0.42, Free T4 2.04 wnl, EKG showing sinus tachycardia - Troponin negative x 3 - propranolol on hold Hypokalemia (2.8 on admission) - Today 3.1 - K+ 40mg given - Etiology likely GI loss Elevated D-Dimer - Etiology: Infectious vs. Anemia - No leukocytosis on admission - CTA chest negative - B/l LE US negative - O2 saturation >92% - Unlikely DVT/PE etiology Hx of Hypothyroid - TSH 0.42, Free T4 2.04 - Continue home synthroid - Propranolol on hold Prophylaxis: SCDs. Pepcid Case seen and reviewed with Dr. Rocha. <Debbie Rocha R - Last Filed: 03/12/18 14:17> Objective - Vital Signs/Intake and Output Vital Signs (last 24 hours): Temp Pulse Resp BP Pulse Ox 98.5 F 80 18 137/96 H 96 03/12/18 06:00 03/12/18 06:00 03/12/18 06:00 03/12/18 06:00 03/12/18 06:00 Intake and Output: 03/12/18 03/12/18 06:59 18:59 Intake Total 640 Balance 640 - Medications Medications: Current Medications Acetaminophen (Tylenol 325mg Tab) 650 mg PO Q6H PRN PRN Reason: Fever >100.4 F Last Admin: 03/10/18 06:57 Dose: 650 mg Acetaminophen (Tylenol 325mg Tab) 650 mg PO Q6H PRN PRN Reason: Pain, moderate (4-7) Last Admin: 03/12/18 08:48 Dose: 650 mg Calcitriol (Rocaltrol) 0.5 mcg PO BID [facility] Last Admin: 03/12/18 10:14 Dose: Not Given Calcium Acetate (Phoslo) 667 mg PO WM [facility] Last Admin: 03/12/18 12:32 Dose: 667 mg Calcium Carbonate (Oscal) 1,000 mg PO BID [facility] Last Admin: 03/12/18 09:28 Dose: 1,000 mg Cholecalciferol (Vitamin D) 2,000 intlu PO DAILY [facility] Last Admin: 03/12/18 09:28 Dose: 2,000 intlu Famotidine (Pepcid) 20 mg PO BID [facility] Last Admin: 03/12/18 09:28 Dose: 20 mg Ferrous Gluconate (Fergon) 324 mg PO DAILY [facility] Last Admin: 03/12/18 09:28 Dose: 324 mg Ceftriaxone Sodium (Rocephin 1 Gram Ivpb) 1 gm in 100 mls @ 100 mls/hr IVPB DAILY [facility] PRN Reason: Protocol Last Admin: 03/12/18 10:56 Dose: 100 mls/hr Levothyroxine Sodium (Synthroid) 125 mcg PO DAILY [facility] Last Admin: 03/12/18 09:29 Dose: 125 mcg Propranolol HCl (Inderal La) 20 mg PO DAILY [facility] - Labs Labs: 03/12/18 05:30 03/12/18 05:30 PT 13.6 SECONDS (9.4-12.5) 03/09/18 06:00 INR 1.18 03/09/18 06:00 APTT 24.4 Seconds (25.1-36.5) L 03/08/18 06:30 Attending/Attestation - Attestation I have personally seen and examined this patient.: Yes I have fully participated in the care of the patient.: Yes I have reviewed all pertinent clinical information, including history, physical exam and plan: Yes Notes (Text): Patient seen and examined by me at 12:15PM with resident 03/10/18. Case including HPI, physical exam, and assessment and plan discussed with resident. Agree with above with following additions/corrections. Patient states that she is feeling pretty good. She has not had any more fevers or chills. She denies any palpitations. No shortness of breath or cough. No nausea, vomiting, or abdominal pain. No headaches or dizziness. She denies any dysuria or burning with urination. No neck pain or back pain. Physical exam: Gen: Awake and alert sitting up in bed in no acute distress HEENT: Normocephalic, atraumatic. Extraocular muscles intact, pupils equal reactive. Oropharynx is pink and moist, no pharyngeal erythema or exudate appreciated. Neck is supple. Cardiovascular: Normal rhythm. Normal S1, S2. No murmurs, rubs, or gallops appreciated Pulmonary: Normal respiratory effort. No rhonchi, rales or wheezing appreciated. Gastrointestinal: Soft, nontender, nondistended, positive bowel sounds all 4 quadrants, no guarding. Musculoskeletal: Normal range of motion all extremities, no calf tenderness, no edema appreciated Central nervous system: AAO x 3. 5/5 muscle strength all extremities. CN 2-12 grossly intact Dermatologic: Skin warm and dry Assessment and plan: Patient is a 47-year-old female with past medical significant for hypothyroidism status post thyroidectomy that presented to the emergency room with palpitations. 1. Sepsis secondary to UTI. Afebrile. Tachycardia improved. Pro-calcitonin elevated at 0.73. Lactic acid 0.6. Continue Rocephin 1 g IV piggyback daily Continue with IV fluids. ID following, recommendations appreciated.. Blood cultures negative so far. Final urine culture pending. Tylenol prn fever. 2. Palpitations. Resolved. Likely secondary to fevers and sepsis. Hold propanolol for now secondary to sepsis. 2D echo per industrial relations analyst showed a normal study. 3. Elevated d-dimer. Patient with recent travel. CTA chest negative for PE. Lower extremity Dopplers negative for DVT 4. Hypokalemia. Improved. Continue with PO replacement. Follow up repeat labs in AM. 5. Hypocalcemia. Given calcium gluconate. Follow up repeat labs in a.m. 6. Elevated creatinine. Likely secondary to mild dehydration. Resolved. Continue to monitor. 7. Iron deficiency anemia with acute on chronic anemia. Iron levels low. Continue ferrous gluconate. UA was positive for large blood. Hemoglobin 6.8. Will transfuse 1 unit packed red blood cells. Continue to monitor CBC. Stool for occult blood pending 8. Hypothyroidism. Continue home levothyroxine Case was discussed in detail with the patient regarding current diagnosis and treatment plan.
[2018-03-10] MEDS ORDERED: Barium Sulfate Susp 2.1% w/v, 2.0% w/w 450 mL Bottle PO ONE (07:23)
[2018-03-10 07:35] LABS: HEMOGLOBIN 6.8 g/dL (12.0-16.0)
[2018-03-10 08:00] LABS: ALBUMIN 3.3 g/dL (3.0-4.8); ALT/SGPT 34 U/L (7-56); AST/SGOT 40 U/L (14-36); BLOOD UREA NITROGEN 11 mg/dL (7-21); CALCIUM 6.3 mg/dL (8.4-10.5); GFR AFRICAN-AMERICAN > 60; GFR NON-AFRICAN AMERICAN 54
[2018-03-10] MEDS ORDERED: Potassium Chloride 20 mEq ER Tab PO ONE (08:37)
[2018-03-10] MEDS: Levothyroxine 125 MCG TAB PO SCH (09:58)
[2018-03-10] MEDS ORDERED: cefTRIAXone 1 gm 1 GM/100 ML BAG IVPB SCH (10:00)
[2018-03-10] MEDS: cefTRIAXone 1 gm 1 GM/100 ML BAG IVPB SCH (12:39)
[2018-03-10] MEDS ORDERED: Potassium Chloride 20 mEq ER Tab PO STA (13:18)
[2018-03-10 13:57] LABS: PROTHROMBIN TIME 13.6 SECONDS (9.4-12.5)
--- NOTE | 2018-03-10 14:22 | CT ---
Date of service: 03/10/2018 PROCEDURE: CT Abdomen and Pelvis without intravenous contrast HISTORY: fever of 103 COMPARISON: None. TECHNIQUE: Without contrast.. Contrast dose: Radiation dose: Total exam DLP = 492 mGy-cm. This CT exam was performed using one or more of the following dose reduction techniques: Automated exposure control, adjustment of the mA and/or kV according to patient size, and/or use of iterative reconstruction technique. FINDINGS: LOWER THORAX: Unremarkable. LIVER: Unremarkable. No gross lesion or ductal dilatation. GALLBLADDER AND BILE DUCTS: Unremarkable. PANCREAS: Unremarkable. No gross lesion or ductal dilatation. SPLEEN: Unremarkable. ADRENALS: Unremarkable. No mass. KIDNEYS AND URETERS: Unremarkable. No hydronephrosis. No solid mass. Small nonobstructing stone in the right kidney 3 mm. VASCULATURE: Unremarkable. No aortic aneurysm. BOWEL: Unremarkable. No obstruction. No gross mural thickening. APPENDIX: Unremarkable. Normal appendix. PERITONEUM: Unremarkable. No free fluid. No free air. LYMPH NODES: Unremarkable. No enlarged lymph nodes. BLADDER: Unremarkable. REPRODUCTIVE: Unremarkable. BONES: No acute fracture. OTHER FINDINGS: None. IMPRESSION: No acute intra-abdominal findings
--- NOTE | 2018-03-10 14:32 | CON ---
Copied To: Zia Pinon MD Attending MD: Zia Pinon MD DATE: 03/10/2018 CHIEF COMPLAINT: Fever times several days. HISTORY OF PRESENT ILLNESS: This is a 47-year-old female with past medical history significant for thyroid cancer who has had thyroidectomy years ago followed by radiation and who was admitted because of palpitations. She states she was having fevers and chills at home, had palpitations. Denies any headaches, any blurred vision. Review of systems reveals no chest pain. No abdominal pain, diarrhea or constipation. No dysuria. No frequency. She has no urinary symptoms. No back pain. PAST MEDICAL HISTORY: Significant for thyroid cancer, hypothyroidism and anemia. PAST SURGICAL HISTORY: Significant for thyroidectomy in 2011 with radiation. ALLERGIES: THE PATIENT HAS NO KNOWN ALLERGIES. MEDICATIONS AT HOME: Include propranolol, levothyroxine, calcium and calcitriol. SOCIAL HISTORY: She lives with her , has three kids, no pets. She had a recent travel to her country in [facility], at the end of January, she returned and she has never had a history of malaria. PHYSICAL EXAMINATION: VITAL SIGNS: On exam, temperature is 99, T-max was 103, blood pressure is 128/80, respiratory rate of 20. The heart rate was up to 104. HEENT: Examination is unremarkable. NECK: Supple. LUNGS: Have decreased breath sounds. HEART: Normal S1, S2. ABDOMEN: Soft, nontender. No rebound, no guarding. No masses. There is no CVA tenderness. DATA: Laboratory examination reveals a white count of 7.5, hemoglobin is 7.6 with an MCV of 65 with a platelets of 336 and coagulation is noted and the D-dimer is elevated and chemistries reveal a BUN of 13, creatinine of 1.2. Procalcitonin 0.73. Urinalysis is noted with 5-10 wbc's, small leukocyte esterase, large blood, 100 protein. Microbiology reveals a gram-negative sanjana in the urine. The blood cultures are negative. The patient had a CT scan of the chest which was negative; lower extremity ultrasound which is negative, chest x-ray which is negative. ASSESSMENT AND PLAN: This is a 47-year-old female with history of thyroid cancer, thyroidectomy, radiation; hypothyroidism, anemia with recent travel to [facility] with a temperature of 103, heart rate of 104, gram-negative sanjana in the urine, although no urinary symptoms and no abdominal symptoms. 1. Sepsis with gram-negative sanjana in urine as the source with anemia, must rule out underlying malaria and because of a travel history to [facility], we will order malaria and babesiosis workup, order babesiosis and malaria smears and the reticulocyte count, HIV, CAT scan of the abdomen and pelvis. Currently, the patient is on ceftriaxone. We will continue the ceftriaxone, pending initial workup results, identification and sensitivity of the Gram-negative sanjana. We will follow closely with you. Zia Pinon MD
[2018-03-10] MEDS ORDERED: Magnesium Oxide 400 mg Tab UD PO STA (21:00)
[2018-03-11 06:58] LABS: BASO # 0.01 K/mm3 (0.0-2.0); BASO % 0.2 % (0.0-3.0); EOS # 0.2 (0.0-0.7); EOS % 2.6 % (1.5-5.0); GRAN # 3.64 (1.4-6.5); GRAN % 59.1 % (50.0-68.0); LYMPH # 1.7 (1.2-3.4); LYMPH % 27.9 % (22.0-35.0); MEAN CELL VOLUME 66.8 fl (80.0-105.0); MEAN CORPUSCULAR HEMOGLOBIN 20.2 pg (25.0-35.0); MEAN CORPUSCULAR HGB CONC 30.3 g/dl (31.0-37.0); MEAN PLATELET VOLUME 8.5 fl (7.0-11.0); MONO # 0.6 (0.1-0.6); MONO % 10.2 % (1.0-6.0); RBC 3.91 10^6/uL (3.5-6.1); RED CELL DISTRIBUTION WIDTH 24.2 % (11.5-14.5); WHITE BLOOD COUNT 6.2 10^3/ul (4.5-11.0)
--- NOTE | 2018-03-11 07:15 | CP.PCM.PN ---
<Marissa Tiwari - Last Filed: 03/11/18 15:33> Subjective - Date & Time of Evaluation Date of Evaluation: 03/11/18 Time of Evaluation: 07:13 - Subjective Subjective: Marissa Tiwari PGY1 Progress Note for Dr. Debbie Rocha Ms. Moura was examined at bedside this morning. She reported no events overnight. She denied any headache, dizziness, fever, chills, chest pain, palpitation, abdominal pain, nausea, vomiting, or dysuria. Objective - Vital Signs/Intake and Output Vital Signs (last 24 hours): Temp Pulse Resp BP Pulse Ox 99.3 F 87 20 142/96 H 100 03/11/18 06:00 03/11/18 06:00 03/11/18 06:00 03/11/18 06:00 03/11/18 06:00 Intake and Output: 03/11/18 03/11/18 06:59 18:59 Intake Total 480 Balance 480 - Medications Medications: Current Medications Acetaminophen (Tylenol 325mg Tab) 650 mg PO Q6H PRN PRN Reason: Fever >100.4 F Last Admin: 03/10/18 06:57 Dose: 650 mg Calcitriol (Rocaltrol) 0.25 mcg PO DAILY [facility] Last Admin: 03/10/18 09:57 Dose: 0.25 mcg Calcium Carbonate (Oscal) 500 mg PO DAILY [facility] Last Admin: 03/10/18 09:57 Dose: 500 mg Famotidine (Pepcid) 20 mg PO BID [facility] Last Admin: 03/10/18 18:20 Dose: 20 mg Ferrous Gluconate (Fergon) 324 mg PO DAILY [facility] Last Admin: 03/10/18 09:57 Dose: 324 mg Sodium Chloride (Sodium Chloride 0.9%) 1,000 mls @ 100 mls/hr IV .Q10H [facility] Last Admin: 03/10/18 22:00 Dose: Not Given Ceftriaxone Sodium (Rocephin 1 Gram Ivpb) 1 gm in 100 mls @ 100 mls/hr IVPB DAILY [facility] PRN Reason: Protocol Last Admin: 03/10/18 12:39 Dose: 100 mls/hr Levothyroxine Sodium (Synthroid) 125 mcg PO DAILY [facility] Last Admin: 03/10/18 09:58 Dose: 125 mcg - Labs Labs: 03/10/18 06:00 08/01/18 06:00 PT 13.6 SECONDS (9.4-12.5) 03/09/18 06:00 INR 1.18 03/09/18 06:00 APTT 24.4 Seconds (25.1-36.5) L 03/08/18 06:30 - Constitutional Appears: Well, No Acute Distress - Head Exam Head Exam: ATRAUMATIC, NORMOCEPHALIC - Eye Exam Eye Exam: EOMI, PERRL Pupil Exam: NORMAL ACCOMODATION - Respiratory Exam Respiratory Exam: Clear to Ausculation Bilateral, NORMAL BREATHING PATTERN - Cardiovascular Exam Cardiovascular Exam: REGULAR RHYTHM, +S1, +S2 - GI/Abdominal Exam GI & Abdominal Exam: Soft, Normal Bowel Sounds. absent: Distended, Guarding, Tenderness Additional comments: no suprapubic tenderness - Extremities Exam Extremities Exam: Normal Inspection. absent: Joint Swelling, Pedal Edema - Neurological Exam Neurological Exam: Alert, Awake, Oriented x3 - Psychiatric Exam Psychiatric exam: Normal Affect, Normal Mood Assessment and Plan - Assessment and Plan (Free Text) Assessment: 47 year old female with past medical history of hypothyroidism, thyroid mass s/ p thyroidectomy (2011) who presents to [facility] ED complaining of few day history of palpitations. Patient evaluated in ED and admitted for palpitations, anemia, and hypokalemia. Patient admitted to observation. Plan: Sepsis - Tmax 103F on 03/09 and tachycardia > 90bpm - T 99.3 today, HR 87 - suspected source Urine culture: confirmed E.coli, CFU >100,000 - UA: small leukocyte esterase - Blood culture: prelim neg x2 - procal: 0.73 - lactate: 0.6 - Rocephin 1gm qd - Inderal on hold - ID Consulted - recommended cefpodoxime 200mg PO upon d/c - awaiting workup of babesiosis and malaria Anemia - Repeat H&H 7.9 / 26.1 today - Fe 19 TIBC 387 - 1 unit PRBC given yesterday (03/10) - Etiology: Menstrual bleeding vs. GI bleed - f/u FOBT: awaiting collection Hypocalcemia - Ca 6.0 today, corrected for albumin 6.6 - Vit D 17.8 today - Consulted Endo: Dr. Elliott, recs appreciated - increase Ca Carbonate to 1000mg BID as per endo - Calcitriol increased to 0.5 mcg daily as per endo - ordered TSH, T4, free T4: f/u results Palpitations - resolved since admission - Etiology: stress reaction from infectious process vs. anemia vs. electrolyte abnormality - Hypokalemia of 2.8 on admission, now 3.4. H/H of 7.6/27.1, now 7.9 / 26.1 - TSH 0.42, Free T4 2.04 wnl, EKG showing sinus tachycardia - Troponin negative x 3 - propranolol on hold Hypokalemia (2.8 on admission) - Today 3.4 - K+ 40mg given again - Etiology likely GI loss Elevated D-Dimer - Etiology: Infectious vs. Anemia - No leukocytosis on admission - CTA chest negative - B/l LE US negative - O2 saturation >92% - Unlikely DVT/PE etiology Hx of Hypothyroid - TSH 0.42, Free T4 2.04 - Continue home synthroid - Consulted endo: Dr. Elliott, recs appreciated - Propranolol on hold Prophylaxis: SCDs. Pepcid Case seen and reviewed with Dr. Rocha. <Debbie Rocha R - Last Filed: 03/12/18 14:49> Objective - Vital Signs/Intake and Output Vital Signs (last 24 hours): Temp Pulse Resp BP Pulse Ox 98.2 F 78 16 136/88 96 03/12/18 12:00 03/12/18 14:27 03/12/18 12:00 03/12/18 14:27 03/12/18 06:00 Intake and Output: 03/12/18 03/12/18 06:59 18:59 Intake Total 640 Balance 640 - Medications Medications: Current Medications Acetaminophen (Tylenol 325mg Tab) 650 mg PO Q6H PRN PRN Reason: Fever >100.4 F Last Admin: 03/10/18 06:57 Dose: 650 mg Acetaminophen (Tylenol 325mg Tab) 650 mg PO Q6H PRN PRN Reason: Pain, moderate (4-7) Last Admin: 03/12/18 08:48 Dose: 650 mg Calcitriol (Rocaltrol) 0.5 mcg PO BID [facility] Last Admin: 03/12/18 10:14 Dose: Not Given Calcium Acetate (Phoslo) 667 mg PO WM [facility] Last Admin: 03/12/18 12:32 Dose: 667 mg Calcium Carbonate (Oscal) 1,000 mg PO BID [facility] Last Admin: 03/12/18 09:28 Dose: 1,000 mg Cholecalciferol (Vitamin D) 2,000 intlu PO DAILY [facility] Last Admin: 03/12/18 09:28 Dose: 2,000 intlu Famotidine (Pepcid) 20 mg PO BID [facility] Last Admin: 03/12/18 09:28 Dose: 20 mg Ferrous Gluconate (Fergon) 324 mg PO DAILY [facility] Last Admin: 03/12/18 09:28 Dose: 324 mg Ceftriaxone Sodium (Rocephin 1 Gram Ivpb) 1 gm in 100 mls @ 100 mls/hr IVPB DAILY [facility] PRN Reason: Protocol Last Admin: 03/12/18 10:56 Dose: 100 mls/hr Levothyroxine Sodium (Synthroid) 125 mcg PO DAILY [facility] Last Admin: 03/12/18 09:29 Dose: 125 mcg Propranolol HCl (Inderal) 20 mg PO DAILY [facility] Last Admin: 03/12/18 14:27 Dose: 20 mg - Labs Labs: 03/12/18 05:30 03/12/18 05:30 PT 13.6 SECONDS (9.4-12.5) 03/09/18 06:00 INR 1.18 03/09/18 06:00 APTT 24.4 Seconds (25.1-36.5) L 03/08/18 06:30 Attending/Attestation - Attestation I have personally seen and examined this patient.: Yes I have fully participated in the care of the patient.: Yes I have reviewed all pertinent clinical information, including history, physical exam and plan: Yes Notes (Text): Patient seen and examined by me at 11:15AM with resident 03/11/18. Case including HPI, physical exam, and assessment and plan discussed with resident. Agree with above with following additions/corrections. Patient states that she is feeling ok. No complaints. She denies any fevers or chills. No more palpitations. No shortness of breath or cough. No nausea, vomiting, or abdominal pain. No headaches or dizziness. No dysuria or burning with urination. No neck pain or back pain. Patient states that she has a history of low calcium secondary to her thyroid surgery. Physical exam: Gen: Awake and alert sitting up in bed in no acute distress HEENT: Normocephalic, atraumatic. Extraocular muscles intact, pupils equal reactive. Oropharynx is pink and moist, no pharyngeal erythema or exudate appreciated. Neck is supple. Cardiovascular: Normal rhythm. Normal S1, S2. No murmurs, rubs, or gallops appreciated Pulmonary: Normal respiratory effort. No rhonchi, rales or wheezing appreciated. Gastrointestinal: Soft, nontender, nondistended, positive bowel sounds all 4 quadrants, no guarding. Musculoskeletal: Normal range of motion all extremities, no calf tenderness, no edema appreciated Central nervous system: AAO x 3. 5/5 muscle strength all extremities. CN 2-12 grossly intact Dermatologic: Skin warm and dry Assessment and plan: Patient is a 47-year-old female with past medical significant for hypothyroidism status post thyroidectomy that presented to the emergency room with palpitations. 1. Sepsis secondary to UTI. Sepsis resolved. Urine culture positive for E.Coli. Remains afebrile. Continue Rocephin 1 g IVPB daily. Continue with IV fluids. Pro-calcitonin was elevated at 0.73. Lactic acid was 0.6. ID following, recommendations appreciated. Blood cultures negative so far. Tylenol prn fever. 2. Palpitations. Resolved. Likely secondary to fevers and sepsis. Hold propanolol for now. 2D echo per beater worker helper showed a normal study. 3. Elevated d-dimer. Patient with recent travel. CTA chest negative for PE. Lower extremity Dopplers negative for DVT 4. Hypokalemia. Improved. Continue with PO replacement. Follow up repeat labs in AM. 5. Hypocalcemia. Calcium 6.0. PTH and Vitamin D ordered. Endocrinology consulted , follow up recommendations. 6. Elevated creatinine. Likely secondary to mild dehydration. Resolved. Continue to monitor. 7. Iron deficiency anemia with acute on chronic anemia. Iron levels low. Continue ferrous gluconate. S/P 1 unit PRBC. H&H improved. Continue to monitor CBC. Stool for occult blood pending 8. Hypothyroidism. Continue home levothyroxine Case was discussed in detail with the patient regarding current diagnosis and treatment plan.
[2018-03-11 07:16] LABS: HEMOGLOBIN 7.9 g/dL (12.0-16.0)
[2018-03-11 07:32] LABS: ALBUMIN 3.1 g/dL (3.0-4.8); ALT/SGPT 25 U/L (7-56); AST/SGOT 35 U/L (14-36); BLOOD UREA NITROGEN 10 mg/dL (7-21); GFR AFRICAN-AMERICAN > 60; GFR NON-AFRICAN AMERICAN 60
--- NOTE | 2018-03-11 08:54 | PN ---
Copied To: Zia Pinon MD Attending MD: Zia Pinon MD DATE: 03/11/2018 SUBJECTIVE: The patient is in bed, in no acute distress, nontoxic. PHYSICAL EXAMINATION: VITAL SIGNS: Temperature is 98, blood pressure is 140/60, respiratory rate of 18. HEENT: Examination of HEENT is unremarkable. NECK: Supple. LUNGS: Have decreased breath sounds. HEART: Normal S1, S2. ABDOMEN: Soft, nontender. LABORATORY DATA: Laboratory examination reveals a white count of 6.2, hemoglobin of 7.9 and coagulation is noted. The chemistries are noted with a procalcitonin of 0.73 and low calcium and low magnesium, mild elevation of AST of 40. Urinalysis is noted. Microbiology reveals E. coli in the urine. It is sensitive to ceftriaxone with a negative blood cultures. It is sensitive to Cipro and sensitive to cefazolin. Review of orders reveals the patient is on ceftriaxone. The malaria workup is still pending. ASSESSMENT AND PLAN: A 47-year-old female with past medical history significant for thyroid cancer, had a thyroidectomy years ago, had radiation. Admitted with palpitations and found that she was having fevers and chills. Temperature of 103 in the hospital with #1 is sepsis with Escherichia coli in the urine as the source, although the patient does not have any genitourinary symptoms. Because of a recent travel to [facility] and anemia, Malaria is in the differential. The patient is on ceftriaxone. Maybe able to switch to p.o. cefpodoxime 200 mg b.i.d. for a total of 7-10 days. The patient's CAT scan of the abdomen was unremarkable. Awaiting for the malaria smear. progress note from today is reviewed. No assessment and plan as of yet is noted. Maybe able to switch to p.o. cefpodoxime from an infectious disease point of view upon discharge. Zia Pinon MD
[2018-03-11] MEDS: Levothyroxine 125 MCG TAB PO SCH (09:49)
[2018-03-11] MEDS: cefTRIAXone 1 gm 1 GM/100 ML BAG IVPB SCH (09:49)
--- NOTE | 2018-03-11 10:39 | CP.PCM.CON ---
History of Present Illness - History of Present Illness History of Present Illness: Endocrinology Consult Note: 47 F with a PMHx of hypothyroidism (thyroidectomy in 2011) , hypocalcemia, and iron-deficiency anemia presented to the ED with palpitations x 2 days prior to arrival to the ED. The palpitations is associated with sweating, chills, and sob. Patient had similar symptom in [facility] were she was given Inderal which relieves her symptoms. She took it prior to arrival and after 3-4 hours it subsided. Patient also states that 1-2 weeks prior to arrival to the ED she was found hypocalcemic by her PMD and was instructed to take Oscal 3 pills BID followed by 2 pills BID and was told her calcium level was better. Patient being treated for sepsis, UTI, anemia, and hypokalemia. Endocrinology was consulted for hypocalcemia. Patient currently has some gary - oral numbness and numbness of her finger tips. No other complaints. 12 Point ROS performed and neg other than stated above. 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 Denies any tobacco use or recreational drug use. Social drinker. Review of Systems - Review of Systems All systems: reviewed and no additional remarkable complaints except Past Patient History - Infectious Disease Hx of Infectious Diseases: None - Past Medical History & Family History Past Medical History?: Yes Past Family History: Reviewed and not pertinent - Past Social History Smoking Status: Never Smoked Alcohol: Occasional Drugs: Denies - CARDIAC Hx Cardiac Disorders: Yes (palpitations) - PULMONARY Hx Respiratory Disorders: No - NEUROLOGICAL Hx Neurological Disorder: No - HEENT Hx HEENT Problems: No - RENAL Hx Chronic Kidney Disease: No - ENDOCRINE/METABOLIC Hx Endocrine Disorders: Yes Hx Hypothyroidism: Yes Other/Comment: thyroidectomy - HEMATOLOGICAL/ONCOLOGICAL Hx Blood Disorders: Yes Hx Cancer: Yes (thyroid) - INTEGUMENTARY Hx Dermatological Problems: No - MUSCULOSKELETAL/RHEUMATOLOGICAL Hx Falls: No - GASTROINTESTINAL Hx Gastrointestinal Disorders: No - GENITOURINARY/GYNECOLOGICAL Hx Genitourinary Disorders: No - PSYCHIATRIC Hx Substance Use: No - SURGICAL HISTORY Hx Surgeries: Yes (thyroidectomy 2011) Meds Allergies/Adverse Reactions: Allergies Allergy/AdvReac Type Severity Reaction Status Date / Time No Known Allergies Allergy Unverified 03/08/18 06:34 - Medications Medications: Current Medications Acetaminophen (Tylenol 325mg Tab) 650 mg PO Q6H PRN PRN Reason: Fever >100.4 F Last Admin: 03/10/18 06:57 Dose: 650 mg Calcitriol (Rocaltrol) 0.25 mcg PO DAILY [facility] Last Admin: 03/11/18 09:49 Dose: 0.25 mcg Calcium Carbonate (Oscal) 1,000 mg PO BID [facility] Famotidine (Pepcid) 20 mg PO BID [facility] Last Admin: 03/11/18 09:49 Dose: 20 mg Ferrous Gluconate (Fergon) 324 mg PO DAILY [facility] Last Admin: 03/11/18 09:49 Dose: 324 mg Sodium Chloride (Sodium Chloride 0.9%) 1,000 mls @ 100 mls/hr IV .Q10H [facility] Last Admin: 03/10/18 22:00 Dose: Not Given Ceftriaxone Sodium (Rocephin 1 Gram Ivpb) 1 gm in 100 mls @ 100 mls/hr IVPB DAILY [facility] PRN Reason: Protocol Last Admin: 03/11/18 09:49 Dose: 100 mls/hr Levothyroxine Sodium (Synthroid) 125 mcg PO DAILY [facility] Last Admin: 03/11/18 09:49 Dose: 125 mcg Physical Exam - Constitutional Appears: No Acute Distress - Eye Exam Eye Exam: EOMI - ENT Exam ENT Exam: Mucous Membranes Moist - Neck Exam Neck exam: Negative for: Tenderness, Thyromegaly - Respiratory Exam Respiratory Exam: Clear to Auscultation Bilateral. absent: Rales, Wheezes - Cardiovascular Exam Cardiovascular Exam: REGULAR RHYTHM, +S1, +S2 - GI/Abdominal Exam GI & Abdominal Exam: Normal Bowel Sounds, Soft. absent: Tenderness - Extremities Exam Extremities exam: Negative for: calf tenderness, pedal edema - Neurological Exam Neurological exam: Alert, CN II-XII Intact - Psychiatric Exam Psychiatric exam: Normal Mood - Skin Skin Exam: Dry, Intact, Warm Results - Vital Signs Recent Vital Signs: Last Vital Signs Temp 98.7 F 03/11/18 08:14 Pulse 81 03/11/18 08:14 Resp 20 03/11/18 06:00 BP 142/96 H 03/11/18 06:00 Pulse Ox 100 03/11/18 06:00 - Labs Result Diagrams: 03/11/18 05:45 03/11/18 05:45 Labs: Laboratory Results - last 24 hr 03/11/18 03/11/18 05:45 05:45 WBC 6.2 D RBC 3.91 Hgb 7.9 L Hct 26.1 L MCV 66.8 L MCH 20.2 L MCHC 30.3 L RDW 24.2 H Plt Count 287 MPV 8.5 Gran % 59.1 Lymph % (Auto) 27.9 Emanuel % (Auto) 10.2 H Eos % (Auto) 2.6 Baso % (Auto) 0.2 Gran # 3.64 Lymph # (Auto) 1.7 Emanuel # (Auto) 0.6 Eos # (Auto) 0.2 Baso # (Auto) 0.01 Sodium 142 Potassium 3.4 L Chloride 108 H Carbon Dioxide 23 Anion Gap 13 BUN 10 Creatinine 1.0 Est GFR ( Amer) > 60 Est GFR (Non-Af Amer) 60 Random Glucose 98 Calcium 6.0 L* Total Bilirubin 0.4 AST 35 ALT 25 Alkaline Phosphatase 54 Total Protein 6.3 Albumin 3.1 Globulin 3.1 Albumin/Globulin Ratio 1.0 L Assessment & Plan - Assessment and Plan (Free Text) Assessment: 47 F with a PMHx of hypothyroidism (thyroidectomy in 2011) , hypocalcemia, and iron-deficiency anemia presented to the ED with palpitations x 2 days prior to arrival to the ED. Patient being treated for sepsis, UTI, anemia s/p transfusion 1 unit PRBC, and hypokalemia. 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 - Ca of 6.0 in the morning - corrected for hypoalbumin of 3.1, calcium is 6.7 - Calcium gluconate x 1 today - Calcium carbonate increased to 1000mg BID - Calcitriol 0.25mc increased to 0.5mcg daily - F/u 25OH Vit D, and PTH intact - Recommend Mg and K supplementation as needed - Cont Levothyroxine 125mcg daily - F/u aislinn TSH, T4, Free T4 Patient case and plan was discussed in detail with Dr Cam. Librado Bone, PGY3
[2018-03-11] MEDS ORDERED: Potassium Chloride 40 mEq/30 ml LIQ UD PO STA (10:50)
[2018-03-11] MEDS ORDERED: Potassium Chloride 20 mEq ER Tab PO STA (11:58)
--- NOTE | 2018-03-12 02:23 | CON ---
Copied To: Larissa Elliott MD Attending MD: Larissa Elliott MD DATE: 03/11/2018 ENDOCRINOLOGY CONSULTATION HISTORY OF PRESENT ILLNESS: This is a 47-year-old female with known history of hypothyroidism with a previous thyroidectomy procedure undertaken, presenting here with palpitations and progressive shortness of breath and was evaluated to have profound hypocalcemia and is now being referred for Endocrine evaluation and management. She also has concomitant marked iron deficiency anemia and received packed RBC transfusion as noted. PAST MEDICAL HISTORY: As mentioned above, history of a prior thyroidectomy in 2011 and has since then been taking calcium and vitamin D supplements till the present time. History of iron-deficiency anemia and has been also using iron supplements intermittently as noted. FAMILY HISTORY: Positive for hypertension and heart disease. SOCIAL HISTORY: The patient has a supportive family. She works as a home health aide. No known substance use. RREVIEW OF SYSTEMS: As mentioned above. Admits to episodic bouts of dizziness and lightheadedness with perioral and facial numbness and tingling worse in the last few weeks prior to admission. Also, admits to precordial chest pain with progressive shortness of breath, initially on exertion and then at rest with episodic bouts of palpitations as noted. Her oral intake has been variable with occasional dyspepsia and nausea and habitual constipation. PHYSICAL EXAMINATION: GENERAL: This is an average built female in no apparent distress. VITAL SIGNS: Blood pressure of 140/80, pulse of 70 beats per minute regular, temperature 98, respirations 20, height is 5 feet 8 inches, weight is 175 pounds. HEENT: Head normocephalic. Eyes anicteric with pale conjunctivae. Funduscopy not possible at this time. Ears, nose and throat otherwise normal. NECK: Supple. Thyroid bed is flat with no palpable mass or cervical adenopathy. There is a healed incision in the anterior neck area as noted. HEART: Hyperdynamic precordium. S1, S2 is rapid and regular. LUNGS: Clear to auscultation. ABDOMEN: Flat, soft with positive bowel sounds. EXTREMITIES: No peripheral edema. Pulses are +2 bilaterally. LABORATORY DATA: Her hemoglobin was initially 7.2 with hematocrit of 25. Chemistries, BUN of 10, sodium 142, potassium 3.4, chloride 108, CO2 of 23, glucose is 98 and creatinine is 1 with a calcium of 6 and albumin of 3.1 and a corrected calcium of 6.9 mg/dL. Her vitamin D level is 25. Her 25-hydroxy vitamin D level is 17.8, magnesium is 1.3, phosphorus is 4.4. 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 She also has hypomagnesemia which will contribute to the hypocalcemia as noted thereof. She also has vitamin D deficiency which will also again contribute to the aforementioned as noted. PLAN OF MANAGEMENT: We will give her a stat dose of the calcium gluconate infusion as discussed with the medical billing supervisor this morning and we will follow through with oral calcium carbonate supplementation with calcitriol to be also added at 0.5 mcg b.i.d. to start today. We will continue the serial chemistries to be obtained and supplement accordingly as needed. We will also obtain a parathyroid hormone intact level to confirm and/or indicate the presence of underlying parathyroid hormone deficiency from the prior thyroidectomy procedure undertaken thereof. We will obtain serial chemistries and supplement accordingly as needed. We will follow. Larissa Elliott MD [facility] # [id number]
[2018-03-12 06:32] LABS: BASO # 0.01 K/mm3 (0.0-2.0); BASO % 0.2 % (0.0-3.0); EOS # 0.2 (0.0-0.7); GRAN # 2.69 (1.4-6.5); GRAN % 49.1 % (50.0-68.0); HEMOGLOBIN 8.3 g/dL (12.0-16.0); LYMPH % 36.3 % (22.0-35.0); MEAN CELL VOLUME 67.1 fl (80.0-105.0); MEAN CORPUSCULAR HEMOGLOBIN 19.9 pg (25.0-35.0); MEAN CORPUSCULAR HGB CONC 29.6 g/dl (31.0-37.0); MEAN PLATELET VOLUME 8.7 fl (7.0-11.0); MONO # 0.6 (0.1-0.6); MONO % 10.4 % (1.0-6.0); RBC 4.17 10^6/uL (3.5-6.1); RED CELL DISTRIBUTION WIDTH 24.5 % (11.5-14.5); WHITE BLOOD COUNT 5.5 10^3/ul (4.5-11.0)
[2018-03-12 06:43] LABS: LDL CHOLESTEROL 131 mg/dL (0-129)
[2018-03-12 07:08] LABS: FREE T4 1.8 ng/dL (0.78-2.19); T4 10.2 ug/dL (5.5-11.0)
[2018-03-12 07:11] LABS: ALBUMIN 3.4 g/dL (3.0-4.8); ALT/SGPT 37 U/L (7-56); AST/SGOT 29 U/L (14-36); BLOOD UREA NITROGEN 12 mg/dL (7-21); CALCIUM 6.3 mg/dL (8.4-10.5); GFR AFRICAN-AMERICAN > 60; GFR NON-AFRICAN AMERICAN 60; HDL CHOLESTEROL 33 mg/dL (29-60)
[2018-03-12] MEDS ORDERED: Magnesium 2 gm/50 ml NS 2 GM/50 ML BAG IVPB ONE (07:50)
[2018-03-12] MEDS ORDERED: Potassium Chloride 40 mEq/30 ml LIQ UD PO STA (07:53)
--- NOTE | 2018-03-12 08:16 | CP.PCM.PN ---
<Marissa Tiwari - Last Filed: 03/12/18 13:56> Subjective - Date & Time of Evaluation Date of Evaluation: 03/12/18 Time of Evaluation: 08:13 - Subjective Subjective: Marissa Tiwari PGY [address] Debbie Rocha Ms. Moura was examined at bedside this morning, resting comfortably. She reported some numbness and tingling around her mouth and in her fingertips. She reports a previous history of this periodically when her calcium is low. She denies any cramping or tightness of her muscles. She reports her last blood work ordered by her PCP done last week showed a normal calcium level. She denied any fever or chills, chest pain, palpitations, dizziness, shortness of breath, abdominal pain, nausea, vomiting, or dysuria. Objective - Vital Signs/Intake and Output Vital Signs (last 24 hours): Temp Pulse Resp BP Pulse Ox 98.5 F 80 18 137/96 H 96 03/12/18 06:00 03/12/18 06:00 03/12/18 06:00 03/12/18 06:00 03/12/18 06:00 Intake and Output: 03/12/18 03/12/18 06:59 18:59 Intake Total 640 Balance 640 - Medications Medications: Current Medications Acetaminophen (Tylenol 325mg Tab) 650 mg PO Q6H PRN PRN Reason: Fever >100.4 F Last Admin: 03/10/18 06:57 Dose: 650 mg Calcitriol (Rocaltrol) 0.5 mcg PO DAILY [facility] Calcium Carbonate (Oscal) 1,000 mg PO BID [facility] Last Admin: 03/11/18 17:45 Dose: 1,000 mg Cholecalciferol (Vitamin D) 2,000 intlu PO DAILY [facility] Famotidine (Pepcid) 20 mg PO BID [facility] Last Admin: 03/11/18 17:45 Dose: 20 mg Ferrous Gluconate (Fergon) 324 mg PO DAILY [facility] Last Admin: 03/11/18 09:49 Dose: 324 mg Ceftriaxone Sodium (Rocephin 1 Gram Ivpb) 1 gm in 100 mls @ 100 mls/hr IVPB DAILY [facility] PRN Reason: Protocol Last Admin: 03/11/18 09:49 Dose: 100 mls/hr Calcium Gluconate 1,000 mg/ (Sodium Chloride) 110 mls @ 110 mls/hr IVPB ONCE ONE Stop: 03/12/18 08:47 Magnesium 2 gm/50 ml NS (Magnesium Sulfate 2 Gm/50 Ml Ns) 2 gm in 50 mls @ 102 mls/hr IVPB ONCE ONE Stop: 03/12/18 08:19 Levothyroxine Sodium (Synthroid) 125 mcg PO DAILY [facility] Last Admin: 03/11/18 09:49 Dose: 125 mcg - Labs Labs: 03/12/18 05:30 03/12/18 05:30 PT 13.6 SECONDS (9.4-12.5) 03/09/18 06:00 INR 1.18 03/09/18 06:00 APTT 24.4 Seconds (25.1-36.5) L 03/08/18 06:30 - Constitutional Appears: Well, No Acute Distress - Head Exam Head Exam: ATRAUMATIC, NORMOCEPHALIC - Eye Exam Eye Exam: EOMI, PERRL - ENT Exam ENT Exam: Mucous Membranes Moist - Neck Exam Neck Exam: Full ROM - Respiratory Exam Respiratory Exam: Clear to Ausculation Bilateral, NORMAL BREATHING PATTERN - Cardiovascular Exam Cardiovascular Exam: REGULAR RHYTHM, +S1, +S2 - GI/Abdominal Exam GI & Abdominal Exam: Soft, Normal Bowel Sounds. absent: Tenderness Additional comments: no suprapubic tenderness - Neurological Exam Neurological Exam: Alert, Awake, Oriented x3 Additional comments: Sensation intact periorally and at DIPs b/l. Chvostek sign negative. Trousseau sign negative. - Psychiatric Exam Psychiatric exam: Normal Affect, Normal Mood Assessment and Plan - Assessment and Plan (Free Text) Assessment: 47 year old female with past medical history of hypothyroidism, thyroid mass s/ p thyroidectomy (2011) who presents to [facility] ED complaining of few day history of palpitations. Patient evaluated in ED and admitted for palpitations, anemia, and hypokalemia. Patient admitted to observation. Plan: Sepsis - Tmax 103F on 03/09 and tachycardia > 90bpm - T 99.3 today, HR 87 - suspected source Urine culture: confirmed E.coli, CFU >100,000 - UA: small leukocyte esterase - Blood culture: prelim neg x3 - procal: 0.73 - lactate: 0.6 - change Rocephin 1gm qd to cefpodoxime 200mg PO BID as per ID - ID Consulted - recs appreciated, follow with outpatient PCP - malaria source prelim negative - awaiting malaria and babesiosis smear - Inderal on hold Anemia - Repeat H&H 8.3 / 28.0 today - Fe 19 TIBC 387 - 1 unit PRBC given on 03/10 - FOBT: negative - Etiology: likely menstrual bleeding Hypocalcemia - Ca 6.3 today, corrected for albumin 6.9 - patient symptomatic with perioral tingling - Vit D 17.8 yesterday - TSH 1.93, T4 10.2, Free T4 1.8 - Consulted Endo: Dr. Elliott recjcaoby appreciated - Calcium gluconate given, as per endo - Vit D given, as per endo - continue Ca Carbonate to 1000mg BID as per endo - continue Calcitriol 0.5 mcg daily as per endo Palpitations - resolved since admission - Etiology: stress reaction from infectious process vs. anemia vs. electrolyte abnormality - Hypokalemia of 2.8 on admission, now 3.4. H/H of 7.6/27.1, now 8.3 / 28.0 - TSH 1.93, Free T4 1.8, T4 10.2 - Troponin negative x 3 - propranolol on hold Hypokalemia (2.8 on admission) - Today 3.5 - K+ 40mg given again Elevated D-Dimer - Etiology: Infectious vs. Anemia - No leukocytosis on admission - CTA chest negative - B/l LE US negative - O2 saturation >92% - Unlikely DVT/PE etiology Hx of Hypothyroid - TSH 1.93, T4 10.2, Free T4 1.8 - Continue home synthroid - Consulted endo: Dr. Elliott recjacoby appreciated - Propranolol on hold Prophylaxis: SCDs. Pepcid Case seen and reviewed with Dr. Rocha. <Debbie Rocha R - Last Filed: 03/13/18 14:22> Objective - Vital Signs/Intake and Output Vital Signs (last 24 hours): Temp Pulse Resp BP Pulse Ox 98.1 F 96 H 20 147/94 H 100 03/13/18 12:00 03/13/18 12:00 03/13/18 12:00 03/13/18 12:00 03/13/18 06:00 Intake and Output: 03/13/18 03/13/18 06:59 18:59 Intake Total 180 Balance 180 - Medications Medications: Current Medications Acetaminophen (Tylenol 325mg Tab) 650 mg PO Q6H PRN PRN Reason: Fever >100.4 F Last Admin: 03/10/18 06:57 Dose: 650 mg Acetaminophen (Tylenol 325mg Tab) 650 mg PO Q6H PRN PRN Reason: Pain, moderate (4-7) Last Admin: 03/12/18 08:48 Dose: 650 mg Calcitriol (Rocaltrol) 0.5 mcg PO BID [facility] Last Admin: 03/13/18 10:00 Dose: 0.5 mcg Calcium Acetate (Phoslo) 1,334 mg PO WM [facility] Calcium Carbonate (Oscal) 1,000 mg PO BID [facility] Last Admin: 03/13/18 10:00 Dose: 1,000 mg Cefpodoxime Proxetil (Vantin) 200 mg PO Q12 [facility] PRN Reason: Protocol Last Admin: 03/13/18 10:02 Dose: 200 mg Cholecalciferol (Vitamin D) 2,000 intlu PO DAILY [facility] Last Admin: 03/13/18 10:00 Dose: 2,000 intlu Famotidine (Pepcid) 20 mg PO BID [facility] Last Admin: 03/13/18 10:00 Dose: 20 mg Ferrous Gluconate (Fergon) 324 mg PO DAILY [facility] Last Admin: 03/13/18 10:00 Dose: 324 mg Magnesium 2 gm/50 ml NS (Magnesium Sulfate 2 Gm/50 Ml Ns) 2 gm in 50 mls @ 50 mls/hr IVPB ONCE ONE Stop: 03/13/18 14:52 Magnesium Sulfate/Dextrose (Magnesium Sulfate 1 Gm/100 Ml D5w) 1 gm in 100 mls @ 100 mls/hr IVPB ONCE ONE Stop: 03/13/18 15:59 Ibuprofen (Motrin Tab) 600 mg PO Q6H PRN PRN Reason: Pain, moderate (4-7) Last Admin: 03/12/18 18:29 Dose: 600 mg Levothyroxine Sodium (Synthroid) 125 mcg PO DAILY [facility] Last Admin: 03/13/18 10:02 Dose: 125 mcg Propranolol HCl (Inderal) 20 mg PO DAILY [facility] Last Admin: 03/13/18 10:01 Dose: 20 mg - Labs Labs: 03/13/18 13:00 03/13/18 13:00 PT 13.6 SECONDS (9.4-12.5) 03/09/18 06:00 INR 1.18 03/09/18 06:00 APTT 24.4 Seconds (25.1-36.5) L 03/08/18 06:30 Attending/Attestation - Attestation I have personally seen and examined this patient.: Yes I have fully participated in the care of the patient.: Yes I have reviewed all pertinent clinical information, including history, physical exam and plan: Yes Notes (Text): Patient seen and examined by me at 11:40AM with resident 03/12/18. Case including HPI, physical exam, and assessment and plan discussed with resident. Agree with above with following additions/corrections. Today, patient complains of some perioral numbness and tingling in her fingertips. She states that this usually happens when her calcium is low. She denies any numbness or tingling anywhere else. She denies any chest pain or shortness of breath. No nausea, vomiting, or abdominal pain. No fevers or chills. No dysuria. No diarrhea or constipation. No headaches or dizziness. Physical exam: Gen: Awake and alert sitting up in bed in no acute distress HEENT: Normocephalic, atraumatic. Extraocular muscles intact, pupils equal reactive. Oropharynx is pink and moist, no pharyngeal erythema or exudate appreciated. Neck is supple. Cardiovascular: Normal rhythm. Normal S1, S2. No murmurs, rubs, or gallops appreciated Pulmonary: Normal respiratory effort. No rhonchi, rales or wheezing appreciated. Gastrointestinal: Soft, nontender, nondistended, positive bowel sounds all 4 quadrants, no guarding. Musculoskeletal: Normal range of motion all extremities, no calf tenderness, no edema appreciated Central nervous system: AAO x 3. 5/5 muscle strength all extremities. CN 2-12 grossly intact Dermatologic: Skin warm and dry Assessment and plan: Patient is a 47-year-old female with past medical significant for hypothyroidism status post thyroidectomy that presented to the emergency room with palpitations. 1. Hypocalcemia. Improving. Status post IV calcium gluconate. Endocrinology following, recommendations appreciated. Calcium carbonate and calcitriol increased. Vitamin D also low. Started on oral vitamin D supplement. PTH pending. Continue to monitor. 2. Hyperphosphatemia. Likely secondary to hypoparathyroidism. Started on PhosLo. Continue to monitor. 3. Hypokalemia. Improved. Continue with PO replacement. Continue to monitor. 4. Hypomagnesemia. Replace with IV magnesium sulfate. Continue to monitor. 5. Sepsis secondary to UTI. Sepsis resolved. Urine culture positive for E.Coli. Remains afebrile. Patient switched to Vantin as per ID recommendations. Pro- calcitonin was elevated at 0.73. Lactic acid was 0.6. ID following, recommendations appreciated. Blood cultures negative with no growth. 6. Palpitations. Resolved. Likely secondary to fevers and sepsis. Propanolol restarted as sepsis resolved. 2D echo per instruction dean showed a normal study. 7. Hypertension. Restarted on home propanolol. 8. Elevated d-dimer. Patient with recent travel. CTA chest negative for PE. Lower extremity Dopplers negative for DVT 9. Elevated creatinine. Likely secondary to mild dehydration. Resolved. Continue to monitor. 10. Iron deficiency anemia with acute on chronic anemia. Iron levels low. Continue ferrous gluconate. S/P 1 unit PRBC. H&H up trending. Continue to monitor CBC. Stool for occult blood negative. 11. Hypothyroidism. Continue home levothyroxine Case was discussed in detail with the patient regarding current diagnosis and treatment plan.
[2018-03-12] MEDS: Cholecalciferol 1,000 INTLU TAB PO SCH (09:28)
[2018-03-12] MEDS: Levothyroxine 125 MCG TAB PO SCH (09:29)
[2018-03-12] MEDS: cefTRIAXone 1 gm 1 GM/100 ML BAG IVPB SCH (10:56)
--- NOTE | 2018-03-12 11:05 | CP.PCM.PN ---
Subjective - Date & Time of Evaluation Date of Evaluation: 03/12/18 Time of Evaluation: 07:55 - Subjective Subjective: Endocrinology progress note for Dr. Elliott: Patient was seen and examined at bedside. Patient resting in bed comfortably. States that he is feeling better however still complain of gary oral numbness. No other complaints. 12 point ROS performed and negative other than stated above. Objective - Vital Signs/Intake and Output Vital Signs (last 24 hours): Temp Pulse Resp BP Pulse Ox 98.5 F 80 18 137/96 H 96 03/12/18 06:00 03/12/18 06:00 03/12/18 06:00 03/12/18 06:00 03/12/18 06:00 Intake and Output: 03/12/18 03/12/18 06:59 18:59 Intake Total 640 Balance 640 - Medications Medications: Current Medications Acetaminophen (Tylenol 325mg Tab) 650 mg PO Q6H PRN PRN Reason: Fever >100.4 F Last Admin: 03/10/18 06:57 Dose: 650 mg Acetaminophen (Tylenol 325mg Tab) 650 mg PO Q6H PRN PRN Reason: Pain, moderate (4-7) Last Admin: 03/12/18 08:48 Dose: 650 mg Calcitriol (Rocaltrol) 0.5 mcg PO BID [facility] Last Admin: 03/12/18 10:14 Dose: Not Given Calcium Acetate (Phoslo) 667 mg PO WM [facility] Calcium Carbonate (Oscal) 1,000 mg PO BID [facility] Last Admin: 03/12/18 09:28 Dose: 1,000 mg Cholecalciferol (Vitamin D) 2,000 intlu PO DAILY [facility] Last Admin: 03/12/18 09:28 Dose: 2,000 intlu Famotidine (Pepcid) 20 mg PO BID [facility] Last Admin: 03/12/18 09:28 Dose: 20 mg Ferrous Gluconate (Fergon) 324 mg PO DAILY [facility] Last Admin: 03/12/18 09:28 Dose: 324 mg Ceftriaxone Sodium (Rocephin 1 Gram Ivpb) 1 gm in 100 mls @ 100 mls/hr IVPB DAILY [facility] PRN Reason: Protocol Last Admin: 03/12/18 10:56 Dose: 100 mls/hr Levothyroxine Sodium (Synthroid) 125 mcg PO DAILY [facility] Last Admin: 03/12/18 09:29 Dose: 125 mcg - Labs Labs: 03/12/18 05:30 03/12/18 05:30 PT 13.6 SECONDS (9.4-12.5) 03/09/18 06:00 INR 1.18 03/09/18 06:00 APTT 24.4 Seconds (25.1-36.5) L 03/08/18 06:30 - Constitutional Appears: No Acute Distress - Head Exam Head Exam: ATRAUMATIC, NORMOCEPHALIC - Eye Exam Eye Exam: EOMI - ENT Exam ENT Exam: Mucous Membranes Moist - Respiratory Exam Respiratory Exam: Clear to Ausculation Bilateral. absent: Rales, Wheezes - Cardiovascular Exam Cardiovascular Exam: REGULAR RHYTHM, +S1, +S2 - GI/Abdominal Exam GI & Abdominal Exam: Soft, Normal Bowel Sounds. absent: Tenderness - Extremities Exam Extremities Exam: absent: Calf Tenderness, Pedal Edema - Neurological Exam Neurological Exam: Alert, Awake, Oriented x3 - Psychiatric Exam Psychiatric exam: Normal Mood - Skin Skin Exam: Dry, Intact, Warm Assessment and Plan - Assessment and Plan (Free Text) Assessment: 47 F with a PMHx of hypothyroidism (thyroidectomy in 2011) , hypocalcemia, and iron-deficiency anemia presented to the ED with palpitations x 2 days prior to arrival to the ED. Patient being treated for sepsis, UTI, anemia s/p transfusion 1 unit PRBC, and hypokalemia. 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 - Ca of 6.3 in the morning - corrected for hypoalbumin of 3.4, calcium is 6.9 - Another Calcium gluconate x 1 today - Calcium carbonate 1000mg BID - Increase Calcitriol 0.5mcg daily to BID - Started Cholecalciferol 2000mg daily - F/u PTH intact - Recommend Mg and K supplementation as needed - Cont Levothyroxine 125mcg daily - F/u serial chemistries Patient case and plan was discussed in detail with Dr Elliott. Librado Bone, PGY3
--- NOTE | 2018-03-12 12:08 | CP.PCM.PN ---
Subjective - Date & Time of Evaluation Date of Evaluation: 03/12/18 Time of Evaluation: 11:05 - Subjective Subjective: No fevers, no chills or rigors, no nausea or vomiting, no chest pain, no dysuria , no diarrhea. Objective - Vital Signs/Intake and Output Vital Signs (last 24 hours): Temp Pulse Resp BP Pulse Ox 98.5 F 80 18 137/96 H 96 03/12/18 06:00 03/12/18 06:00 03/12/18 06:00 03/12/18 06:00 03/12/18 06:00 Intake and Output: 03/12/18 03/12/18 06:59 18:59 Intake Total 640 Balance 640 - Medications Medications: Current Medications Acetaminophen (Tylenol 325mg Tab) 650 mg PO Q6H PRN PRN Reason: Fever >100.4 F Last Admin: 03/10/18 06:57 Dose: 650 mg Acetaminophen (Tylenol 325mg Tab) 650 mg PO Q6H PRN PRN Reason: Pain, moderate (4-7) Last Admin: 03/12/18 08:48 Dose: 650 mg Calcitriol (Rocaltrol) 0.5 mcg PO BID [facility] Last Admin: 03/12/18 10:14 Dose: Not Given Calcium Acetate (Phoslo) 667 mg PO [facility] Calcium Carbonate (Oscal) 1,000 mg PO BID [facility] Last Admin: 03/12/18 09:28 Dose: 1,000 mg Cholecalciferol (Vitamin D) 2,000 intlu PO DAILY [facility] Last Admin: 03/12/18 09:28 Dose: 2,000 intlu Famotidine (Pepcid) 20 mg PO BID [facility] Last Admin: 03/12/18 09:28 Dose: 20 mg Ferrous Gluconate (Fergon) 324 mg PO DAILY [facility] Last Admin: 03/12/18 09:28 Dose: 324 mg Ceftriaxone Sodium (Rocephin 1 Gram Ivpb) 1 gm in 100 mls @ 100 mls/hr IVPB DAILY [facility] PRN Reason: Protocol Last Admin: 03/12/18 10:56 Dose: 100 mls/hr Levothyroxine Sodium (Synthroid) 125 mcg PO DAILY [facility] Last Admin: 03/12/18 09:29 Dose: 125 mcg - Labs Labs: 03/12/18 05:30 03/12/18 05:30 PT 13.6 SECONDS (9.4-12.5) 03/09/18 06:00 INR 1.18 03/09/18 06:00 APTT 24.4 Seconds (25.1-36.5) L 03/08/18 06:30 - Constitutional Appears: Non-toxic - Head Exam Head Exam: NORMAL INSPECTION - Respiratory Exam Respiratory Exam: Decreased Breath Sounds. absent: Rales - Cardiovascular Exam Cardiovascular Exam: +S1, +S2 - GI/Abdominal Exam GI & Abdominal Exam: Soft. absent: Tenderness Assessment and Plan - Assessment and Plan (Free Text) Plan: Assessment Sepsis due to E. coli UTI thyroid cancer S/P thyroidectomy and radiation therapy Plan On Rocephin - can be switched to PO Cefpodoxime for another 7-10 days with outpatient follow up with PMD malaria smear is negative
[2018-03-12 16:09] LABS: ALBUMIN 3.4 g/dL (3.0-4.8); ALT/SGPT 36 U/L (7-56); AST/SGOT 30 U/L (14-36); BLOOD UREA NITROGEN 13 mg/dL (7-21); CALCIUM 6.6 mg/dL (8.4-10.5); GFR AFRICAN-AMERICAN > 60; GFR NON-AFRICAN AMERICAN > 60
--- NOTE | 2018-03-12 21:10 | PN ---
Copied To: Larissa Elliott MD Attending MD: Larissa Elliott MD DATE: 03/12/2018 LOCATION: In room 266. SUBJECTIVE: This is a 47-year-old female with recent admission for palpitations and generalized body weakness, and was found to have symptomatic hypocalcemia, and is now being followed closely for metabolic management. Her perioral numbness and facial weakness have subsided at this time after calcium infusion was given. Her latest chemistries showed a BUN of 12, sodium 141, potassium 3.5, chloride 105, CO2 of 26, glucose 93 and creatinine 1. Her calcium is 6.3, with an albumin of 3.4 and a corrected calcium of 6.9 mg/dL. Her thyroid study showed a T4 of 10.2 with a TSH of 1.93 and a free T4 of 1.8. Her vitamin D level is 17.86, which is low as noted. Her magnesium is 1.3. 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 She remains clinically and biochemically euthyroid with the aforementioned levothyroxine replacement therapy as given. PLAN OF MANAGEMENT: We will continue the calcium gluconate infusion as given today, and obtain serial chemistries and serial calcium levels, and adjust her dose regimen accordingly. Moreover, we will also increase the calcium carbonate to 1000 mg b.i.d. to start today, and also increase the calcitriol given as 0.5 mcg b.i.d. as ordered. We will continue the levothyroxine given as 125 mcg daily as ordered. We will obtain serial chemistries and supplement accordingly as needed. We are still awaiting the reports of the parathyroid hormone intact level as ordered and sent out to a reference lab. We will follow and advise accordingly. Larissa Elliott MD
[2018-03-13 07:23] LABS: BASO # 0.03 K/mm3 (0.0-2.0); BASO % 0.5 % (0.0-3.0); EOS # 0.3 (0.0-0.7); EOS % 4.8 % (1.5-5.0); GRAN # 2.83 (1.4-6.5); GRAN % 46.7 % (50.0-68.0); HEMOGLOBIN 8.6 g/dL (12.0-16.0); LYMPH # 2.3 (1.2-3.4); LYMPH % 38.2 % (22.0-35.0); MEAN CELL VOLUME 67.6 fl (80.0-105.0); MEAN CORPUSCULAR HEMOGLOBIN 20.2 pg (25.0-35.0); MEAN CORPUSCULAR HGB CONC 29.9 g/dl (31.0-37.0); MEAN PLATELET VOLUME 8.6 fl (7.0-11.0); MONO # 0.6 (0.1-0.6); MONO % 9.8 % (1.0-6.0); RBC 4.26 10^6/uL (3.5-6.1); RED CELL DISTRIBUTION WIDTH 24.7 % (11.5-14.5); WHITE BLOOD COUNT 6.1 10^3/ul (4.5-11.0)
[2018-03-13 07:27] LABS: ALBUMIN 3.5 g/dL (3.0-4.8); ALT/SGPT 32 U/L (7-56); AST/SGOT 32 U/L (14-36); BLOOD UREA NITROGEN 16 mg/dL (7-21); GFR AFRICAN-AMERICAN > 60; GFR NON-AFRICAN AMERICAN 60
--- NOTE | 2018-03-13 09:02 | PN ---
Copied To: Zia Pinon MD Attending MD: Zia Pinon MD DATE: 03/13/2018 SUBJECTIVE: The patient is seen early this morning. No fevers, no chills. No nausea, no vomiting. No chest pain. OBJECTIVE: VITAL SIGNS: On exam, temperature is 98, blood pressure is 128/80, respiratory rate of 20, heart rate of 72. HEENT: Examination is unremarkable. NECK: Supple. LUNGS: Have decreased breath sounds. HEART: Normal S1, S2. ABDOMEN: Soft, nontender. No organomegaly. No rebound, no guarding, no masses. DATA: Laboratory examination reveals the patient has E. Coli in the urine and pansensitive. White count of 6.1 and hemoglobin of 8.. Coagulation is noted and chemistries are reviewed. Procalcitonin is 0.73 and urinalysis is noted and serology is negative. Malaria smears are negative. Review of orders reveal the patient to be on cefpodoxime. ASSESSMENT AND PLAN: This is a 47-year-old female who is admitted with sepsis secondary to Escherichia coli urinary tract infection because of a recent travel to [facility] considering malaria was ruled out in of anemia in a patient who has history of thyroid cancer, status post thyroidectomy and currently on cefpodoxime to complete a total of 10 days and today is day #4 of 10 days. Zia Pinon MD
[2018-03-13] MEDS: Cholecalciferol 1,000 INTLU TAB PO SCH (10:00)
[2018-03-13] MEDS: Cefpodoxime (Vantin) 200 mg Tab PO SCH ×3 (10:02→21:48)
[2018-03-13] MEDS: Levothyroxine 125 MCG TAB PO SCH (10:02)
--- NOTE | 2018-03-13 10:14 | PN ---
Copied To: Larissa Elliott MD Attending MD: Larissa Elliott MD DATE: 03/13/2018 ENDOCRINOLOGY FOLLOWUP LOCATION: Room 266. This is a 47-year-old female presenting here with marked symptomatic hypocalcemia and received parenteral and oral calcium supplementation and has since then improved clinically and metabolically as noted thereof. The repeat chemistries today have improved dramatically with a BUN of 16, sodium 141, potassium 3.6, chloride 101, CO2 26, glucose 89 and creatinine 1. The repeat calcium level today is 7 with an albumin level of 3.5 and a corrected calcium of 7.5. Her parathyroid hormone level was reported as less than 1, which is really confirmatory of hypoparathyroidism postoperatively from her prior thyroidectomy. Her magnesium level is 1.6 with a phosphorus of 7.7. ASSESSMENT: This is a 47-year-old female with marked symptomatic hypocalcemia and associated upper and lower extremity paresthesias and facial numbness that have resolved already at this time with parenteral calcium infusion as given. She clearly has the so-called surgical hypoparathyroidism related to the prior total thyroidectomy as undertaken thereof. PLAN OF MANAGEMENT: As discussed with her by the medical staff, the patient needs lifelong calcium and vitamin D supplementation given orally even on the outpatient basis. Dose modifications have been undertaken from yesterday and we increased the calcitriol to 0.5 mcg b.i.d. with calcium carbonate increased to 1 g b.i.d. as ordered. She also received calcium infusion yesterday as given. In the ideal world, it would be great to give her also lifelong synthetic PTH or parathyroid hormone injections, such as, Forteo, but these are extremely, extremely expensive costing over 2000 dollars a month or more and are not approved by the insurance companies at this time. So, we will compromise with giving her oral calcium and vitamin D supplementation as mentioned. We will obtain serial chemistries and supplement accordingly as needed. We will also continue her levothyroxine as she remains clinically and biochemically euthyroid with a dose of 125 mcg daily as ordered. She can follow with her primary doctor for outpatient medical and metabolic followup. Larissa Elliott MD
--- NOTE | 2018-03-13 12:30 | CP.PCM.PN ---
<Marissa Tiwari - Last Filed: 03/13/18 13:48> Subjective - Date & Time of Evaluation Date of Evaluation: 03/13/18 Time of Evaluation: 12:21 - Subjective Subjective: Marissa Tiwari PGY1 Progress Note for Dr. Debbie Rocha Ms. Moura was examined at bedside this morning. She claims the perioral and fingertip numbness resolved. She reported a headache last night, which has resolved as well. She denies dizziness, chest pain, palpitations, abdominal pain , nausea, or vomiting. Objective - Vital Signs/Intake and Output Vital Signs (last 24 hours): Temp Pulse Resp BP Pulse Ox 98.1 F 72 20 128/85 100 03/13/18 06:00 03/13/18 10:01 03/13/18 06:00 03/13/18 10:01 03/13/18 06:00 Intake and Output: 03/13/18 03/13/18 06:59 18:59 Intake Total 180 Balance 180 - Medications Medications: Current Medications Acetaminophen (Tylenol 325mg Tab) 650 mg PO Q6H PRN PRN Reason: Fever >100.4 F Last Admin: 03/10/18 06:57 Dose: 650 mg Acetaminophen (Tylenol 325mg Tab) 650 mg PO Q6H PRN PRN Reason: Pain, moderate (4-7) Last Admin: 03/12/18 08:48 Dose: 650 mg Calcitriol (Rocaltrol) 0.5 mcg PO BID [facility] Last Admin: 03/13/18 10:00 Dose: 0.5 mcg Calcium Carbonate (Oscal) 1,000 mg PO BID [facility] Last Admin: 03/13/18 10:00 Dose: 1,000 mg Cefpodoxime Proxetil (Vantin) 200 mg PO Q12 [facility] PRN Reason: Protocol Last Admin: 03/13/18 10:02 Dose: 200 mg Cholecalciferol (Vitamin D) 2,000 intlu PO DAILY [facility] Last Admin: 03/13/18 10:00 Dose: 2,000 intlu Famotidine (Pepcid) 20 mg PO BID [facility] Last Admin: 03/13/18 10:00 Dose: 20 mg Ferrous Gluconate (Fergon) 324 mg PO DAILY [facility] Last Admin: 03/13/18 10:00 Dose: 324 mg Ibuprofen (Motrin Tab) 600 mg PO Q6H PRN PRN Reason: Pain, moderate (4-7) Last Admin: 03/12/18 18:29 Dose: 600 mg Levothyroxine Sodium (Synthroid) 125 mcg PO DAILY [facility] Last Admin: 03/13/18 10:02 Dose: 125 mcg Propranolol HCl (Inderal) 20 mg PO DAILY [facility] Last Admin: 03/13/18 10:01 Dose: 20 mg - Labs Labs: 03/13/18 06:30 03/13/18 06:30 PT 13.6 SECONDS (9.4-12.5) 03/09/18 06:00 INR 1.18 03/09/18 06:00 APTT 24.4 Seconds (25.1-36.5) L 03/08/18 06:30 - Constitutional Appears: Well, No Acute Distress - Head Exam Head Exam: ATRAUMATIC, NORMOCEPHALIC - Eye Exam Eye Exam: EOMI, Normal appearance, PERRL - ENT Exam ENT Exam: Mucous Membranes Moist - Respiratory Exam Respiratory Exam: Clear to Ausculation Bilateral, NORMAL BREATHING PATTERN. absent: Rhonchi, Wheezes, Stridor - Cardiovascular Exam Cardiovascular Exam: RRR, +S1, +S2 - GI/Abdominal Exam GI & Abdominal Exam: Soft, Normal Bowel Sounds. absent: Rigid, Tenderness - Extremities Exam Extremities Exam: Normal Inspection. absent: Pedal Edema, Tenderness - Back Exam Back Exam: NORMAL INSPECTION - Neurological Exam Neurological Exam: Alert, Awake, Oriented x3 Additional comments: [place] sign negative. - Psychiatric Exam Psychiatric exam: Normal Affect, Normal Mood Assessment and Plan - Assessment and Plan (Free Text) Assessment: 47 year old female with past medical history of hypothyroidism, thyroid mass s/ p thyroidectomy (2011) who presents to [facility] [place] ED complaining of few day history of palpitations. Patient evaluated in ED and admitted for palpitations, anemia, and hypokalemia. Patient admitted to observation. Plan: Sepsis - Tmax 103F on 03/09 and tachycardia > 90bpm - T 98.1 today, HR 72 - suspected source Urine culture: confirmed E.coli, CFU >100,000 - UA: small leukocyte esterase - Blood culture: prelim neg x4 - procal: 0.73 - lactate: 0.6 - cefpodoxime 200mg PO BID as per ID, day 4 of 10 - ID Consulted - recs appreciated, follow with outpatient PCP - malaria source prelim negative - awaiting malaria and babesiosis smear - Inderal on hold Anemia - Repeat H&H 8.6 / 28.8 today - Fe 19 TIBC 387 - 1 unit PRBC given on 03/10 - FOBT: negative - Etiology: likely menstrual bleeding Hypocalcemia - Ca 7.0 today - patient no longer symptomatic - Vit D 17.8 (03/11) - TSH 1.93, T4 10.2, Free T4 1.8 (03/12) - Consulted Endo: ashanti Hines appreciated - Calcium gluconate given yesterday, as per endo - Vit D 2000iu daily, as per endo - continue Ca Carbonate to 1000mg BID as per endo - continue Calcitriol 0.5 mcg daily as per endo - f/u PM labs Hypophosphatemia - P today 7.7 AM, 7.0 PM labs - give Phosplo 1334 x1 dose - monitor Hypoparathyroidism - PTH <1 - As per Dr. Earl Cai- Forteo PTH injections very expensive out of pocket, so continue with oral Ca and Vit D outpatient Palpitations - resolved since admission - Etiology: stress reaction from infectious process vs. anemia vs. electrolyte abnormality - Hypokalemia of 2.8 on admission, now 3.6. H/H of 7.6/27.1, now 8.8 / 28.8 - TSH 1.93, Free T4 1.8, T4 10.2 (03/12) - Troponin negative x 3 - propranolol on hold Hypokalemia (2.8 on admission) - Today 3.6 - will monitor Elevated D-Dimer - Etiology: Infectious vs. Anemia - No leukocytosis on admission - CTA chest negative - B/l LE US negative - O2 saturation >92% - Unlikely DVT/PE etiology Hx of Hypothyroid - TSH 1.93, T4 10.2, Free T4 1.8 (03/12) - Continue home synthroid - Consulted endo: ashanti Hines appreciated - Propranolol on hold Prophylaxis: SCDs. Pepcid Case seen and reviewed with Dr. Rocha. <Debbie Rocha R - Last Filed: 03/14/18 18:05> Objective - Vital Signs/Intake and Output Vital Signs (last 24 hours): Temp Pulse Resp BP Pulse Ox 97.6 F 73 20 115/76 97 03/14/18 06:00 03/14/18 06:00 03/14/18 06:00 03/14/18 06:00 03/14/18 06:00 Intake and Output: 03/14/18 03/14/18 06:59 18:59 Intake Total 200 Balance 200 - Labs Labs: 03/14/18 06:00 03/14/18 06:00 PT 13.6 SECONDS (9.4-12.5) 03/09/18 06:00 INR 1.18 03/09/18 06:00 APTT 24.4 Seconds (25.1-36.5) L 03/08/18 06:30 Attending/Attestation - Attestation I have personally seen and examined this patient.: Yes I have fully participated in the care of the patient.: Yes I have reviewed all pertinent clinical information, including history, physical exam and plan: Yes Notes (Text): Patient seen and examined by me at 10:20AM with resident 03/13/18. Case including HPI, physical exam, and assessment and plan discussed with resident. Agree with above with following additions/corrections. Patient states that she is feeling better. Perioral numbness and tingling in her fingertips has resolved. She denies any chest pain or shortness of breath. No nausea, vomiting, or abdominal pain. No fevers or chills. No dysuria. No diarrhea or constipation. No headaches or dizziness. Physical exam: Gen: Awake and alert sitting up in bed in no acute distress HEENT: Normocephalic, atraumatic. Extraocular muscles intact, pupils equal reactive. Oropharynx is pink and moist, no pharyngeal erythema or exudate appreciated. Neck is supple. Cardiovascular: Normal rhythm. Normal S1, S2. No murmurs, rubs, or gallops appreciated Pulmonary: Normal respiratory effort. No rhonchi, rales or wheezing appreciated. Gastrointestinal: Soft, nontender, nondistended, positive bowel sounds all 4 quadrants, no guarding. Musculoskeletal: Normal range of motion all extremities, no calf tenderness, no edema appreciated Central nervous system: AAO x 3. 5/5 muscle strength all extremities. CN 2-12 grossly intact Dermatologic: Skin warm and dry Assessment and plan: Patient is a 47-year-old female with past medical significant for hypothyroidism status post thyroidectomy that presented to the emergency room with palpitations. 1. Hyperphosphatemia. Likely secondary to hypoparathyroidism. Continue PhosLo. Continue to monitor. 2. Hypocalcemia. Continues to improve. Status post IV calcium gluconate. Endocrinology following, recommendations appreciated. Continue Calcium carbonate and calcitriol. Continue vitamin D supplement. PTH low. Patient will need life long calcium and vitamin d per endo. Continue to monitor. 3. Hypokalemia. Resolved. Continue to monitor. 4. Hypomagnesemia. Replace with IV magnesium sulfate. Continue to monitor. 5. Sepsis secondary to UTI. Sepsis resolved. Urine culture positive for E.Coli. Remains afebrile. Patient switched to Vantin as per ID recommendations. Pro- calcitonin was elevated at 0.73. Lactic acid was 0.6. ID following, recommendations appreciated. Blood cultures negative with no growth. 6. Palpitations. Resolved. Likely secondary to fevers and sepsis. Propanolol restarted as sepsis resolved. 2D echo per collar setter overlock showed a normal study. 7. Hypertension. Continue propanolol. 8. Elevated d-dimer. Patient with recent travel. CTA chest negative for PE. Lower extremity Dopplers negative for DVT 9. Elevated creatinine. Likely secondary to mild dehydration. Resolved. Continue to monitor. 10. Iron deficiency anemia with acute on chronic anemia. Iron levels low. Continue ferrous gluconate. S/P 1 unit PRBC. H&H stable. Continue to monitor CBC. Stool for occult blood negative. 11. Hypothyroidism. Continue home levothyroxine Case was discussed in detail with the patient regarding current diagnosis and treatment plan.
[2018-03-13 13:15] LABS: BASO # 0.02 K/mm3 (0.0-2.0); BASO % 0.3 % (0.0-3.0); EOS # 0.3 (0.0-0.7); EOS % 4.7 % (1.5-5.0); GRAN # 3.4 (1.4-6.5); GRAN % 56.5 % (50.0-68.0); HEMOGLOBIN 8.8 g/dL (12.0-16.0); LYMPH % 32.7 % (22.0-35.0); MEAN CELL VOLUME 67.8 fl (80.0-105.0); MEAN CORPUSCULAR HEMOGLOBIN 20.2 pg (25.0-35.0); MEAN CORPUSCULAR HGB CONC 29.8 g/dl (31.0-37.0); MEAN PLATELET VOLUME 8.5 fl (7.0-11.0); MONO # 0.4 (0.1-0.6); MONO % 5.8 % (1.0-6.0); RBC 4.35 10^6/uL (3.5-6.1); RED CELL DISTRIBUTION WIDTH 24.4 % (11.5-14.5)
[2018-03-13 13:20] LABS: ALBUMIN 3.7 g/dL (3.0-4.8); ALT/SGPT 34 U/L (7-56); AST/SGOT 27 U/L (14-36); BLOOD UREA NITROGEN 15 mg/dL (7-21); CALCIUM 7.4 mg/dL (8.4-10.5); GFR AFRICAN-AMERICAN > 60; GFR NON-AFRICAN AMERICAN > 60
[2018-03-13] MEDS ORDERED: Magnesium 2 gm/50 ml NS 2 GM/50 ML BAG IVPB ONE (13:53)
[2018-03-13] MEDS ORDERED: Magnesium Sulfate 1 gm in D5W 1 GM/100 ML BAG IVPB ONE (15:00)
[2018-03-14 07:00] LABS: BASO # 0.01 K/mm3 (0.0-2.0); BASO % 0.2 % (0.0-3.0); EOS # 0.3 (0.0-0.7); EOS % 4.2 % (1.5-5.0); GRAN # 3.75 (1.4-6.5); GRAN % 58.2 % (50.0-68.0); HEMOGLOBIN 8.7 g/dL (12.0-16.0); LYMPH % 30.7 % (22.0-35.0); MEAN CELL VOLUME 68.1 fl (80.0-105.0); MEAN CORPUSCULAR HEMOGLOBIN 20.1 pg (25.0-35.0); MEAN CORPUSCULAR HGB CONC 29.6 g/dl (31.0-37.0); MEAN PLATELET VOLUME 8.5 fl (7.0-11.0); MONO # 0.4 (0.1-0.6); MONO % 6.7 % (1.0-6.0); RBC 4.32 10^6/uL (3.5-6.1); RED CELL DISTRIBUTION WIDTH 24.8 % (11.5-14.5); WHITE BLOOD COUNT 6.4 10^3/ul (4.5-11.0)
[2018-03-14 07:45] LABS: ALBUMIN 3.6 g/dL (3.0-4.8); ALT/SGPT 41 U/L (7-56); AST/SGOT 43 U/L (14-36); BLOOD UREA NITROGEN 18 mg/dL (7-21); CALCIUM 7.6 mg/dL (8.4-10.5); GFR AFRICAN-AMERICAN > 60; GFR NON-AFRICAN AMERICAN 60
[2018-03-14 08:06] VITALS: BP 115/76; PULSE 73; RESP 20; TEMP 97.6; O2SAT 97
[2018-03-14] MEDS: Levothyroxine 125 MCG TAB PO SCH (09:49)
[2018-03-14] MEDS: Cholecalciferol 1,000 INTLU TAB PO SCH (09:49)
[2018-03-14] MEDS: Cefpodoxime (Vantin) 200 mg Tab PO SCH (09:50)
--- NOTE | 2018-03-14 11:13 | CP.PCM.DIS ---
Provider - Provider Date of Admission: 03/09/18 16:30 Attending physician: Debbie Rocha [facility] Course - Lab Results Lab Results: Most Recent Lab Values WBC 6.4 10^3/ul (4.5-11.0) 03/14/18 06:00 RBC 4.32 10^6/uL (3.5-6.1) 03/14/18 06:00 Hgb 8.7 g/dL (12.0-16.0) L 03/14/18 06:00 Hct 29.4 % (36.0-48.0) L 03/14/18 06:00 MCV 68.1 fl (80.0-105.0) L 03/14/18 06:00 MCH 20.1 pg (25.0-35.0) L 03/14/18 06:00 MCHC 29.6 g/dl (31.0-37.0) L 03/14/18 06:00 RDW 24.8 % (11.5-14.5) H 03/14/18 06:00 Plt Count 393 10^3/uL (120.0-450.0) 03/14/18 06:00 MPV 8.5 fl (7.0-11.0) 03/14/18 06:00 Gran % 58.2 % (50.0-68.0) 03/14/18 06:00 Lymph % (Auto) 30.7 % (22.0-35.0) 03/14/18 06:00 [place]aines % (Auto) 6.7 % (1.0-6.0) H 03/14/18 06:00 Eos % (Auto) 4.2 % (1.5-5.0) 03/14/18 06:00 Baso % (Auto) 0.2 % (0.0-3.0) 03/14/18 06:00 Gran # 3.75 (1.4-6.5) 03/14/18 06:00 Lymph # (Auto) 2.0 (1.2-3.4) 03/14/18 06:00 Haines # (Auto) 0.4 (0.1-0.6) 03/14/18 06:00 Eos # (Auto) 0.3 (0.0-0.7) 03/14/18 06:00 Baso # (Auto) 0.01 K/mm3 (0.0-2.0) 03/14/18 06:00 Retic Count 0.78 % (0.5-1.5) 03/10/18 06:00 PT 13.6 SECONDS (9.4-12.5) 03/09/18 06:00 INR 1.18 03/09/18 06:00 APTT 24.4 Seconds (25.1-36.5) L 03/08/18 06:30 D-Dimer, Quantitative 337 ng/mL (0-243) H 03/08/18 06:30 Sodium 141 mmol/L (132-148) 03/14/18 06:00 Potassium 3.8 mmol/L (3.6-5.0) 03/14/18 06:00 Chloride 101 mmol/L (98-107) 03/14/18 06:00 Carbon Dioxide 27 mmol/L (21-33) 03/14/18 06:00 Anion Gap 16 (10-20) 03/14/18 06:00 BUN 18 mg/dL (7-21) 03/14/18 06:00 Creatinine 1.0 mg/dl (0.7-1.2) 03/14/18 06:00 Est GFR ( Amer) > 60 03/14/18 06:00 Est GFR (Non-Af Amer) 60 03/14/18 06:00 Random Glucose 97 mg/dL (70-110) 03/14/18 06:00 Lactic Acid 0.6 mmol/L (0.7-2.1) L 03/10/18 06:00 Calcium 7.6 mg/dL (8.4-10.5) L 03/14/18 06:00 Phosphorus 7.4 mg/dL (2.5-4.5) H 03/14/18 06:00 Magnesium 2.0 mg/dL (1.7-2.2) 03/14/18 06:00 Iron 19 ug/dL (45-180) L 03/08/18 15:39 TIBC 387 ug/dL (265-497) 03/08/18 15:39 % Saturation 5 % (20-55) L 03/08/18 15:39 Total Bilirubin 0.4 mg/dL (0.2-1.3) 03/14/18 06:00 AST 43 U/L (14-36) H D 03/14/18 06:00 ALT 41 U/L (7-56) 03/14/18 06:00 Alkaline Phosphatase 53 U/L (38-126) 03/14/18 06:00 Lactate Dehydrogenase 538 U/L (333-699) 03/08/18 06:30 Total Creatine Kinase 69 U/L (35-230) 03/08/18 06:30 Troponin I < 0.01 ng/mL 03/08/18 19:42 Total Protein 7.1 g/dL (5.8-8.3) 03/14/18 06:00 Albumin 3.6 g/dL (3.0-4.8) 03/14/18 06:00 Globulin 3.5 gm/dL 03/14/18 06:00 Albumin/Globulin Ratio 1.0 (1.1-1.8) L 03/14/18 06:00 Triglycerides 76 mg/dL (35-160) 03/12/18 05:30 Cholesterol 190 mg/dL (130-200) 03/12/18 05:30 LDL Cholesterol Direct 131 mg/dL (0-129) H 03/12/18 05:30 HDL Cholesterol 33 mg/dL (29-60) 03/12/18 05:30 25-OH Vitamin D Total 17.8 NG/ML (30.0-100.0) L 03/11/18 08:40 Procalcitonin 0.73 NG/ML (0.19-0.49) H 03/09/18 06:30 Free T4 1.80 ng/dL (0.78-2.19) 03/12/18 05:30 Thyroxine (T4) 10.2 ug/dL (5.5-11.0) 03/12/18 05:30 TSH 3rd Generation 1.93 mIU/mL (0.46-4.68) 03/12/18 05:30 PTH Intact Whole Molec <1 pg/mL (14-64) L 03/11/18 08:40 Urine Color Yellow (YELLOW) 03/08/18 16:55 Urine Appearance Slight-cloudy (CLEAR) 03/08/18 16:55 Urine pH 7.0 (4.7-8.0) 03/08/18 16:55 Ur Specific [place] 1.020 (1.005-1.035) 03/08/18 16:55 Urine Protein 100 mg/dL (<30 mg/dL) H 03/08/18 16:55 Urine Glucose (UA) Negative mg/dL (NEGATIVE) 03/08/18 16:55 Urine Ketones Negative mg/dL (NEGATIVE) 03/08/18 16:55 Urine Blood Large (NEGATIVE) H 03/08/18 16:55 Urine Nitrate Negative (NEGATIVE) 03/08/18 16:55 Urine Bilirubin Negative (NEGATIVE) 03/08/18 16:55 Urine Urobilinogen 0.2 E.U./dL (<1 E.U./dL) 03/08/18 16:55 Ur Leukocyte Esterase Small Teresa/uL (NEGATIVE) H 03/08/18 16:55 Urine RBC 25 - 30 /hpf (0-2) 03/08/18 16:55 Urine WBC 5 - 10 /hpf (0-6) 03/08/18 16:55 Ur Epithelial Cells 6 - 8 /hpf (0-5) 03/08/18 16:55 Stool Occult Blood Negative (NEGATIVE) 03/11/18 12:42 Babesia microti IgG Ab <1:64 03/10/18 06:00 Babesia microti IgM Ab <1:20 03/10/18 06:00 Babesia Interpretation See note 03/10/18 06:00 HIV 1&2 Ag/Ab, 4th Gen Nonreactive (Nonreactive) 03/10/18 06:12 Malaria Source See note (NEGATIVE) 03/10/18 06:04 Blood Type A POSITIVE 03/08/18 07:40 Blood Type Confirm A POSITIVE 03/08/18 08:20 Antibody Screen Negative 03/08/18 07:40 Crossmatch See Detail 03/08/18 07:40 BBK History Checked No verified bt 03/08/18 07:40 Discharge Exam - Head Exam Head Exam: ATRAUMATIC, NORMOCEPHALIC Discharge Plan - Discharge Medications Prescriptions: Calcitriol [Rocaltrol] 0.5 mcg PO BID #60 sgl Calcium Carbonate [Oscal] 1,000 mg PO BID #60 tab Cefpodoxime [Vantin] 200 mg PO Q12 #3 tab Cholecalciferol (Vitamin D3) [Vitamin D3] 2,000 unit PO DAILY #30 tablet Ergocalciferol (Vitamin D2) [Vitamin D2] 50,000 unit PO QWK #4 capsule Ferrous Gluconate [Fergon] 324 mg PO DAILY #30 tab Levothyroxine [Synthroid] 125 mcg PO DAILY #30 tab Propranolol [Inderal] 20 mg PO DAILY #30 tab - Follow Up Plan Condition: FAIR Disposition: HOME/ ROUTINE Additional Instructions: Upon discharge please take the following medications: -Calcitriol 0.5mg 1 tab by mouth twice daily -Calcium carbonate 1000mg 1 tab by mouth twice daily -Cholecalciferol Vitamin D3 2000U 1 tab by mouth daily -Ergocalciferol Vitamin D2 50,000U 1 tab by mouth weekly -Fergon 324mg 1 tab by mouth daily -Synthroid 125mcg 1 tab by mouth daily -Propranolol 20mg 1 tab by mouth daily -Cefpodoxime 200mg 1 tab by mouth twice daily for 2 days [please take 1 dose tonight and tomorrow- last day 03/15/18] Please follow up with your primary care doctor within 3-5 days and please follow up with Endocrinology within 7 days. You will need repeat blood work with your primary care doctor to monitor your calcium, phosphorous, and magnesium levels. If symptoms return please return to the Emergency Department.
--- NOTE | 2018-03-14 13:52 | PN ---
Copied To: Zia Pinon MD Attending MD: Zia Pinon MD DATE: 03/14/2018 SUBJECTIVE: The patient is in bed, in no acute distress, nontoxic. OBJECTIVE: VITAL SIGNS: On exam, temperature is 98, blood pressure is 150/100, respiratory rate 20, heart rate of 96. HEENT: Examination is unremarkable. NECK: Supple. LUNGS: Have decreased breath sounds. HEART: Normal S1, S2. ABDOMEN: Soft, nontender. DATA: Laboratory examination reveals a white count of 6.4, hemoglobin of 8 and chemistries are noted. Urinalysis is noted and serology is negative. Microbiology, there is no growth. The patient did have E. coli in the urine. The blood cultures, there are no growth. ASSESSMENT AND PLAN: He is a 47-year-old female seen earlier today in room 366, bed 1, admitted with sepsis secondary to Escherichia coli urinary tract infection because of a recent travel to [facility] and admitted with anemia and malaria was ruled out. The patient with a history of thyroid cancer, status post thyroidectomy and today is day #5, would complete 7 to 10 days p.o. cefpodoxime. Case discussed with PMD. Zia Pinon MD
--- NOTE | 2018-03-14 16:55 | CP.PCM.DIS ---
Provider - Provider Date of Admission: 03/09/18 16:30 Attending physician: Debbie Rocha DO Consults: Infectious Disease Endocrinology Time Spent in preparation of Discharge (in minutes): 70 Hospital Course - Lab Results Lab Results: Most Recent Lab Values WBC 6.4 10^3/ul (4.5-11.0) 03/14/18 06:00 RBC 4.32 10^6/uL (3.5-6.1) 03/14/18 06:00 Hgb 8.7 g/dL (12.0-16.0) L 03/14/18 06:00 Hct 29.4 % (36.0-48.0) L 03/14/18 06:00 MCV 68.1 fl (80.0-105.0) L 03/14/18 06:00 MCH 20.1 pg (25.0-35.0) L 03/14/18 06:00 MCHC 29.6 g/dl (31.0-37.0) L 03/14/18 06:00 RDW 24.8 % (11.5-14.5) H 03/14/18 06:00 Plt Count 393 10^3/uL (120.0-450.0) 03/14/18 06:00 MPV 8.5 fl (7.0-11.0) 03/14/18 06:00 Gran % 58.2 % (50.0-68.0) 03/14/18 06:00 Lymph % (Auto) 30.7 % (22.0-35.0) 03/14/18 06:00 [place] % (Auto) 6.7 % (1.0-6.0) H 03/14/18 06:00 Eos % (Auto) 4.2 % (1.5-5.0) 03/14/18 06:00 Baso % (Auto) 0.2 % (0.0-3.0) 03/14/18 06:00 Gran # 3.75 (1.4-6.5) 03/14/18 06:00 Lymph # (Auto) 2.0 (1.2-3.4) 03/14/18 06:00 [place] # (Auto) 0.4 (0.1-0.6) 03/14/18 06:00 Eos # (Auto) 0.3 (0.0-0.7) 03/14/18 06:00 Baso # (Auto) 0.01 K/mm3 (0.0-2.0) 03/14/18 06:00 Retic Count 0.78 % (0.5-1.5) 03/10/18 06:00 PT 13.6 SECONDS (9.4-12.5) 03/09/18 06:00 INR 1.18 03/09/18 06:00 APTT 24.4 Seconds (25.1-36.5) L 03/08/18 06:30 D-Dimer, Quantitative 337 ng/mL (0-243) H 03/08/18 06:30 Sodium 141 mmol/L (132-148) 03/14/18 06:00 Potassium 3.8 mmol/L (3.6-5.0) 03/14/18 06:00 Chloride 101 mmol/L (98-107) 03/14/18 06:00 Carbon Dioxide 27 mmol/L (21-33) 03/14/18 06:00 Anion Gap 16 (10-20) 03/14/18 06:00 BUN 18 mg/dL (7-21) 03/14/18 06:00 Creatinine 1.0 mg/dl (0.7-1.2) 03/14/18 06:00 Est GFR ( Amer) > 60 03/14/18 06:00 Est GFR (Non-Af Amer) 60 03/14/18 06:00 Random Glucose 97 mg/dL (70-110) 03/14/18 06:00 Lactic Acid 0.6 mmol/L (0.7-2.1) L 03/10/18 06:00 Calcium 7.6 mg/dL (8.4-10.5) L 03/14/18 06:00 Phosphorus 7.4 mg/dL (2.5-4.5) H 03/14/18 06:00 Magnesium 2.0 mg/dL (1.7-2.2) 03/14/18 06:00 Iron 19 ug/dL (45-180) L 03/08/18 15:39 TIBC 387 ug/dL (265-497) 03/08/18 15:39 % Saturation 5 % (20-55) L 03/08/18 15:39 Total Bilirubin 0.4 mg/dL (0.2-1.3) 03/14/18 06:00 AST 43 U/L (14-36) H D 03/14/18 06:00 ALT 41 U/L (7-56) 03/14/18 06:00 Alkaline Phosphatase 53 U/L (38-126) 03/14/18 06:00 Lactate Dehydrogenase 538 U/L (333-699) 03/08/18 06:30 Total Creatine Kinase 69 U/L (35-230) 03/08/18 06:30 Troponin I < 0.01 ng/mL 03/08/18 19:42 Total Protein 7.1 g/dL (5.8-8.3) 03/14/18 06:00 Albumin 3.6 g/dL (3.0-4.8) 03/14/18 06:00 Globulin 3.5 gm/dL 03/14/18 06:00 Albumin/Globulin Ratio 1.0 (1.1-1.8) L 03/14/18 06:00 Triglycerides 76 mg/dL (35-160) 03/12/18 05:30 Cholesterol 190 mg/dL (130-200) 03/12/18 05:30 LDL Cholesterol Direct 131 mg/dL (0-129) H 03/12/18 05:30 HDL Cholesterol 33 mg/dL (29-60) 03/12/18 05:30 25-OH Vitamin D Total 17.8 NG/ML (30.0-100.0) L 03/11/18 08:40 Procalcitonin 0.73 NG/ML (0.19-0.49) H 03/09/18 06:30 Free T4 1.80 ng/dL (0.78-2.19) 03/12/18 05:30 Thyroxine (T4) 10.2 ug/dL (5.5-11.0) 03/12/18 05:30 TSH 3rd Generation 1.93 mIU/mL (0.46-4.68) 03/12/18 05:30 PTH Intact Whole Mole[place] <1 pg/mL (14-64) L 03/11/18 08:40 Urine Color Yellow (YELLOW) 03/08/18 16:55 Urine Appearance Slight-cloudy (CLEAR) 03/08/18 16:55 Urine pH 7.0 (4.7-8.0) 03/08/18 16:55 Ur Specific [place] 1.020 (1.005-1.035) 03/08/18 16:55 Urine Protein 100 mg/dL (<30 mg/dL) H 03/08/18 16:55 Urine Glucose (UA) Negative mg/dL (NEGATIVE) 03/08/18 16:55 Urine Ketones Negative mg/dL (NEGATIVE) 03/08/18 16:55 Urine Blood Large (NEGATIVE) H 03/08/18 16:55 Urine Nitrate Negative (NEGATIVE) 03/08/18 16:55 Urine Bilirubin Negative (NEGATIVE) 03/08/18 16:55 Urine Urobilinogen 0.2 E.U./dL (<1 E.U./dL) 03/08/18 16:55 Ur Leukocyte Esterase Small Teresa/uL (NEGATIVE) H 03/08/18 16:55 Urine RBC 25 - 30 /hpf (0-2) 03/08/18 16:55 Urine WBC 5 - 10 /hpf (0-6) 03/08/18 16:55 Ur Epithelial Cells 6 - 8 /hpf (0-5) 03/08/18 16:55 Stool Occult Blood Negative (NEGATIVE) 03/11/18 12:42 Babesia microti IgG Ab <1:64 03/10/18 06:00 Babesia microti IgM Ab <1:20 03/10/18 06:00 Babesia Interpretation See note 03/10/18 06:00 HIV 1&2 Ag/Ab, 4th Gen Nonreactive (Nonreactive) 03/10/18 06:12 Malaria Source See note (NEGATIVE) 03/10/18 06:04 Blood Type A POSITIVE 03/08/18 07:40 Blood Type Confirm A POSITIVE 03/08/18 08:20 Antibody Screen Negative 03/08/18 07:40 Crossmatch See Detail 03/08/18 07:40 BBK History Checked No verified bt 03/08/18 07:40 - Hospital Course Hospital Course: Marissa Tiwari PGY1 Discharge Summary for Dr. Debbie Rocha Ms. Moura is a 47yo F with a PMH of hypothyroidism and iron-deficiency anemia presented to the ED with palpitations for 2 days. She reported sitting at home on 03/06 and feeling palpitations, unprovoked by any activity or incident. She reported associated sweating, chills, and shortness of breath. She denied any chest pain, dizziness or loss of consciousness. She reportrf a previous history of this episode in 01/2018 in [facility], where she visited a hospital there and received inderal. The patient reports the palpitations recurring yesterday . In the ED, patient had a HR of 97. Her H&H was 7.6 and 27.1. Her K+ was 2.8. She had an elevated D-dimer of 337. Patient was admitted for palpitations, anemia, and hypokalemia. CXR, and LE Doppler U/S were unremarkable. UA showed small leukocyte esterase and large blood. A Urine Culture was taken. Upon admission, patient reported her palpitations had resolved but that she felt episodes of fever and chills. Patient was repleted of potassium and hypokalemia was resolved as K+ trended to 3.8. H&H were trended and decreased to 6.8 and 24.2. UCx grew E.Coli. BCx was negative. ID was consulted. Patient was given Rocephin and switched to Cefpodoxime for a total course of 7 days of antibiotic treatment, as per ID recommendations. Patient was given 1 unit of PRBC transfused. Repeat H&H trended up to 8.7 and 29.4. Patient became hypocalcemic at 6.6. She began experiencing perioral and distal fingertip numbness. Endocrinology was consulted. She was given Calcium gluconate , calcium carbonate and calcitriol, as per endo recommendations. Repeat calcium was 8.5. The patient reported resolution of symptoms. Patient became hyperphosphatemic at 7.7. She was given Phoslo and Phophorous trended down to 7.4. Instructions on follow up appointments upon discharge with primary care physician and head neck surgeon were given. Instructions on medications for discharge were given. Patient comprehended condition and instructions. Discharge Exam - Head Exam Head Exam: NORMOCEPHALIC - Eye Exam Eye Exam: EOMI, Normal appearance Pupil Exam: NORMAL ACCOMODATION - ENT Exam ENT Exam: Mucous Membranes Moist - Neck Exam Neck exam: Full Rom - Respiratory Exam Respiratory Exam: Clear to PA & Lateral, NORMAL BREATHING PATTERN - Cardiovascular Exam Cardiovascular Exam: REGULAR RHYTHM, +S1, +S2 - GI/Abdominal Exam GI & Abdominal Exam: Normal Bowel Sounds, Soft. absent: Tenderness - Extremities Exam Extremities exam: normal inspection - Back Exam Back exam: NORMAL INSPECTION - Neurological Exam Neurological exam: Alert, Oriented x3, Reflexes Normal - Psychiatric Exam Psychiatric exam: Normal Affect, Normal Mood - Skin Skin Exam: Normal Color Discharge Plan - Discharge Medications Prescriptions: Calcitriol [Rocaltrol] 0.5 mcg PO BID #60 sgl Calcium Carbonate [Oscal] 1,000 mg PO BID #60 tab Cefpodoxime [Vantin] 200 mg PO Q12 #3 tab Cholecalciferol (Vitamin D3) [Vitamin D3] 2,000 unit PO DAILY #30 tablet Ergocalciferol (Vitamin D2) [Vitamin D2] 50,000 unit PO QWK #4 capsule Ferrous Gluconate [Fergon] 324 mg PO DAILY #30 tab Levothyroxine [Synthroid] 125 mcg PO DAILY #30 tab Propranolol [Inderal] 20 mg PO DAILY #30 tab - Follow Up Plan Condition: FAIR Disposition: HOME/ ROUTINE Instructions: Chest Pain, Anemia Caused by Low Iron, Adult (DC) Additional Instructions: Upon discharge please take the following medications: -Calcitriol 0.5mg 1 tab by mouth twice daily -Calcium carbonate 1000mg 1 tab by mouth twice daily -Cholecalciferol Vitamin D3 2000U 1 tab by mouth daily -Ergocalciferol Vitamin D2 50,000U 1 tab by mouth weekly -Fergon 324mg 1 tab by mouth daily -Synthroid 125mcg 1 tab by mouth daily -Propranolol 20mg 1 tab by mouth daily -Cefpodoxime 200mg 1 tab by mouth twice daily for 2 days [please take 1 dose tonight and tomorrow- last day 03/15/18] Please follow up with your primary care doctor within 3-5 days and please follow up with Endocrinology within 7 days. You will need repeat blood work with your primary care doctor to monitor your calcium, phosphorous, and magnesium levels. If symptoms return please return to the Emergency Department. Referrals: Larissa Elliott MD [Medical Doctor] -
--- NOTE | 2018-03-15 03:09 | PN ---
Copied To: Larissa Elliott MD Attending MD: Larissa Elliott MD DATE: 03/14/2018 ENDOCRINOLOGY FOLLOWUP LOCATION: Room 366. SUBJECTIVE: This is a 47-year-old female presenting here with symptomatic hypocalcemia and has improved clinically and metabolically with parenteral and oral calcium and vitamin D supplementation as given. Her latest chemistry showed a BUN of 18, sodium 141, potassium 3.8, chloride 101, CO2 27, glucose 97 and creatinine 1. Her calcium level now is 7.6 with an albumin level of 3.6 and her magnesium is 2 with a phosphorus of 7.4 with expected as compensatory for the underlying hypocalcemia. ASSESSMENT AND PLAN: So at this time, we will continue the current oral vitamin D supplementation with calcium carbonate given as 1000 mg b.i.d. and calcitriol given as 0.5 mcg b.i.d. We will also continue her [id number] vitamin D3 at 2000 units daily and prescription vitamin D2 as 50,000 units once a week ordered. We will continue also the levothyroxine given as 125 mcg daily and she will follow with her primary physician on the outpatient for ongoing medical management and serial lab testing as indicated. Larissa Elliott MD
== END 2018-03-14 14:04 | disposition home or self-care (01) | DRG 901 ==
LOC: ED 05:35 → MERGE 05:35 → ERH 10:50 → 2RNO 12:08 → OBSVTOIN 03-09 16:30 → 3RNO 03-13 13:49
PROVIDERS: ADMIT Hospitalist; ATTEND Hospitalist
PROC: 30233N1 Transfusion of Nonautologous Red Blood Cells into Peripheral Vein, Percutaneous Approach (ICD-10-PCS; principal; 2018-03-10)
DX: A41.9 Sepsis, unspecified organism (principal); N39.0 Urinary tract infection, site not specified; E87.6 Hypokalemia; B96.20 Unspecified Escherichia coli [E. coli] as the cause of diseases classified elsewhere; D50.9 Iron deficiency anemia, unspecified; E86.0 Dehydration; E89.0 Postprocedural hypothyroidism; E83.51 Hypocalcemia; R00.2 Palpitations; E83.42 Hypomagnesemia; E55.9 Vitamin D deficiency, unspecified; E83.39 Other disorders of phosphorus metabolism; I10 Essential (primary) hypertension; K59.00 Constipation, unspecified; Z85.850 Personal history of malignant neoplasm of thyroid; R79.1 Abnormal coagulation profile